=== PATIENT | female | born 1955 | race Caucasian/White ===

== ENCOUNTER 2023-11-24 14:08 | Outpatient (CLI) | payer MEDICARE, SELFPAY ==
--- NOTE | 2023-11-24 14:30 | MR_ITS ---
Patient: KIMBERLY ZHU Facility:?[facility] RIS Patient ID:?[id number] Site Patient ID:?[id number]. Site :?[id number] Study:?MRI-Head W/ and W/O Cont 20 CC DOATERM-11/24/2023 4:38:40 PM Ordering Physician:GOPAL SANTOS Final Report: INDICATION: Headaches. History of breast cancer. COMPARISON: None available. TECHNIQUE: Multiplanar T1, T2, FLAIR and diffusion-weighted imaging.. Post gadolinium T1 weighted sequences. FINDINGS: Mild generalized volume loss. Scattered patchy T2/FLAIR signal hyperintensity within the white matter of both cerebral hemispheres are nonspecific but likely represent chronic deep white matter small vessel ischemic changes. No acute intracranial hemorrhage. No abnormal ventricular dilatation. Intracranial vascular flow voids are preserved. There is a small 3 millimeter ovoid area of low T1 signal intensity within the subcortical white matter of the anterior right temporal lobe with surrounding T2/FLAIR signal hyperintensity but no enhancement (best appreciated on series 6, image 14; series 12, image 81). Finding is indeterminate and may represent a cavernoma with surrounding gliotic change or sequela of old infection or trauma. No mass effect. No midline shift. No restricted diffusion to suggest acute ischemia. No abnormal enhancement or enhancing lesions within the brain parenchyma. Bilateral orbits are unremarkable. Normal appearing sella. Visualized paranasal sinuses mastoid air cells are unremarkable. IMPRESSION: 1. No acute intracranial abnormality 2. No abnormal enhancement or enhancing lesions. No intracranial metastases 3. Mild generalized cerebral volume loss. Scattered patchy T2/FLAIR signal hyperintensity within the white matter of both cerebral hemispheres are nonspecific but likely represent chronic deep white matter small vessel ischemic changes. 4. As described, there is a small 3 millimeter ovoid low T1 signal intensity lesion within the subcortical white matter of the anterior right temporal lobe with surrounding T2/FLAIR signal hyperintensity. No corresponding enhancement. Findings is indeterminate and may represent a cavernoma with surrounding gliosis or sequela of old infection or trauma 5. No mass effect. Dictated by Maurice Charles MD @ 11/26/2023 12:06:59 PM Signed by:?Maurice Charles MD @11/26/2023 12:06:59 PM (Electronic Signature)
== END 2023-11-24 14:09 | disposition home or self-care (01) ==
LOC: MRI 14:12
PROVIDERS: PCP Family Medicine; Visit Provider Internal Medicine Hematology & Oncology
DX: R51.9 Headache, unspecified (principal); I67.82 Cerebral ischemia; Z85.3 Personal history of malignant neoplasm of breast
CPT/HCPCS: 70553; A9575

== ENCOUNTER 2024-07-23 13:41 | Emergency (ER) | payer MEDICARE, SELFPAY ==
[2024-07-23 14:05] VITALS: BP 122/72; PULSE 98; RESP 22; TEMP 37.1; O2SAT 98; BMI 24.0
--- NOTE | 2024-07-23 14:11 | ED_ITS ---
HPI - General Adult General Date Seen: 07/23/24 Chief complaint: Skin/Abscess/Foreign Body Stated complaint: Body rash Time Seen by Provider: 07/23/24 14:11 History of Present Illness HPI narrative: 68-year-old female with a history triple negative breast cancer, treated 5 years ago, with recent recurrence. She is presenting to the ER today with concern for rash. She has a full-body, very pruritic rash that began 2 days ago on Monday. She was seen at the ER in [place] yesterday and was given intramuscular shot of prednisone and Benadryl (they were not able to establish IV). She was sent home on prednisone but did not take her dose this morning. She has been taking Benadryl for the itching. She was on a course of amoxicillin last week for UTI. Per records from the hospital in [place] that she has started a rash on her back on Monday evening which spread to her shoulder, neck, then abdomen. She had labs that showed a white count of 6.4, 79% neutrophils, 9% lymphocytes, 6.7%, monocytes, 4.4% eosinophils Patient reports that she developed an itchy rash on her upper back between her shoulder blades. She is not exactly sure how long it has been on cut she has had some mild itching there for couple of weeks but definitely she has had itc edward and has had a rash since Monday night. She 1st noted the severe itching on Monday night and her daughter looked her back and confirmed that there was a patchy red rash there. Since then the rash is spread to the front of her shoulders, her entire at chest and torso, lesions on the upper part of her upper arms and more sparse lesions on both forearms including the volar and dorsal surfaces and lesions on her hands, including the palms. That she has also spread lesions to both of her lower extremities. She does not have any lesions on her face or scalp. Related Data Allergies Allergy/AdvReac Type Severity Reaction Status Date / Time Sulfa (Sulfonamide Allergy Intermediate Verified 07/23/24 14:04 Antibiotics) [facility] Social History Smoking Status: Never smoker How often do you have a drink containing alcohol: never AUDIT-C Alcohol total score: 0 Non-prescribed substance use: denies use Exam Narrative: Exam Narrative: Constitutional: Appears well-developed and well-nourished. Alert. Conversant. Non toxic. HENT: Head: Atraumatic. Nose: Nose normal. Mouth/Throat: Oral mucosa is clear and moist. no trismus. Pharynx normal. Tonsils symmetric. No tonsillar enlargement, erythema, or exudate. Eyes: Mild irritation of bilateral bulbar conjunctiva. Sclera normal. Small amount of clear drainage from both eyes.. EOM normal. Pupils equal, round, and reactive to light. No scleral icterus. Neck: Normal range of motion. Neck supple. No tracheal deviation present. Cardiovascular: Normal rate, regular rhythm. No gallop. No friction rub. No murmur heard. Symmetric radial artery pulses Pulmonary/Chest: Effort normal. No stridor. No respiratory distress. No wheezes. No rales. No rhonchi . No tenderness. Abdominal: Soft. Bowel sounds normal. No distension. No mass. No tenderness. No rebound. No guarding. Musculoskeletal: RUE: Normal range of motion. No tenderness. No deformity LUE: Normal range of motion. No tenderness. No deformity RLE: Normal range of motion. No edema. No tenderness. No deformity LLE: Normal range of motion. No edema. No tenderness. No deformity Lymph: No cervical adenopathy. Neurological: Alert and oriented to person, place, and time. Normal strength. CN II-VII intact. No sensory deficit. GCS eye subscore is 4. GCS verbal subscore is 5. GCS motor subscore is 6. Normal coordination Skin: There is a widespread erythematous rash affecting the patient's neck, anterior and posterior torso, upper extremities, lower extremities. The rash is primarily round macular non raised lesions. There are innumerable number of lesions on her torso and upper extremities so they become confluent. There is no central vesicles or pustules. No desquamation. Negative Nikolsky sign. The macules are blanchable. They are not really raised urticarial. This there are few macular lesions affecting the skin of her palms. Less lesions on the dorsum of her hands. She oral mucous membranes are normal. On the skin of her leg she has more brown macular lesions especially on her thighs but the macular lesions on her shins to have some tiny erythematous capillary dots in the middle but no purple petechiae or purpura. The rashes are not raised or palpable. Rash not consistent with scarlet fever. No sore throat. No pharyngitis. No pallor. Normal capillary refill. Psychiatric: Normal mood. Pleasant but somewhat anxious. Const: Vital Signs, click to edit/add: Vital Signs - 24 hr 07/23/24 14:05 Temperature 98.7 F Pulse Rate [Pulse Oximeter] 98 Respiratory Rate 22 Blood Pressure [Ri ght Upper Arm] 122/72 Pulse Oximetry 98 Oxygen Delivery Me thod Room Air Course Vital Signs Vital signs: Initial Vital Signs Temperature 98.7 F 07/23/24 14:05 Temperature Source Temporal Artery Scan 07/23/24 14:05 Pulse Rate 98 07/23/24 14:05 Respiratory Rate 22 07/23/24 14:05 Blood Pressure 122/72 07/23/24 14:05 Blood Pressure Mean 88 07/23/24 14:05 Blood Pressure Position Sitting 07/23/24 14:05 Pulse Oximetry 98 07/23/24 14:05 Oxygen Delivery Method Room Air 07/23/24 14:05 Vital Signs Temperature 98.7 F 07/23/24 14:05 Pulse Rate 98 07/23/24 14:05 Respiratory Rate 22 07/23/24 14:05 Blood Pressure 122/72 07/23/24 14:05 Pulse Oximetry 98 07/23/24 14:05 Oxygen Delivery Method Room Air 07/23/24 14:05 Temperature 98.7 F 07/23/24 14:05 Pulse Rate 98 07/23/24 14:05 Respiratory Rate 22 07/23/24 14:05 Blood Pressure 122/72 07/23/24 14:05 Pulse Oximetry 98 07/23/24 14:05 Oxygen Delivery Method Room Air 07/23/24 14:05 Medical Decision Making [facility] Narrative Medical decision making narrative: This patient presents for evaluation of widespread pruritic rash affecting most of her body from the neck down to her lower extremities. Differential includes large reaction but slow spread and presenting symptoms not really fit with that. No evidence for airway involvement, bronchospasm, GI symptoms, hypotension, or other sign of anaphylaxis. Patient is already on prednisone and Benadryl at home. At this point the rash is not consistent with a widespread cellulitis or infection. Not consistent with disseminated zoster, disseminated Lyme. She was recently on a course of amoxicillin for UTI so I wonder if this could be a drug eruption. There is no desquamation or intraoral lesions to suggest CV to Malcolm's or toxic epidermal necrolysis.. CBC shows normal use in a pill count, argue against DRESS. She does have minimally abnormal LFTs. Uncertain significance. She does have new leukocytosis which I suspect is probably a demargination reaction from prednisone which she was given yesterday in the ER. Would continue prednisone for now. Would recommend close outpatient follow-up. Would recommend repeat labs either tomorrow in clinic or by Monday. Return to the ER for worsening rash or other worsening symptoms. Continue on prednisone and Benadryl for now. Lab Data Labs: Lab Results 07/23/24 Range/Units 14:57 WBC 14.81 H (4.50-11.00) K/uL RBC 5.05 (4.00-5.20) m/uL Hgb 14.2 (12.0-16.0) gm/dL Hct 43.0 (33.0-51.0) % MCV 85 (80-100) fL MCH 28 (26-34) pg MCHC 33 (32-36) gm/dL RDW Coeff of Casey 12.2 (11.5-15.5) % Plt Count 228 (140-440) K/uL Neut % (Auto) 85.4 H (42.0-72.0) % Lymph % (Auto) 5.1 L (20-44) % York % (Auto) 6.6 (0.0-11.0) % Eos % (Auto) 1.8 (0.0-7.0) % Baso % (Auto) 0.1 (0.0-3.0) % Neut # (Auto) 12.60 H (1.7-7.0) K/uL Lymph # (Auto) 0.80 L (0.90-2.90) K/uL York # (Auto) 1.00 H (0.00-0.90) K/UL Eos # (Auto) 0.30 (0.00-0.50) K/uL Baso # (Auto) 0.00 (0.00-0.30) K/uL Abs Immat Gran (auto) 0.10 (0.00-0.30) K/uL Imm/Tot Granulo (auto) 1.0 % Sodium 132 L (135-149) mmol/L Potassium 4.5 (3.6-5.1) mmol/L Chloride 96 (96-114) mmol/L Carbon Dioxide 28 (20-32) mmol/L Anion Gap 8 (7-15) mEq/L BUN 16 (7-30) mg/dL Creatinine 0.8 (0.5-1.5) mg/dL Estimated Creat Clear 49.00 Estimated GFR 79 ml/min Glucose 93 (60-115) mg/dL Calcium 9.7 (8.4-10.6) mg/dL Total Bilirubin 0.2 (0.1-1.5) mg/dL AST 52 H (12-35) U/L ALT 43 H (4-35) U/L Alkaline Phosphatase 90 (40-150) U/L Total Protein 7.2 (6.0-8.3) g/dL Albumin 4.4 (3.3-5.0) g/dL Discharge Plan Discharge Clinical Impression: Rash, Drug eruption, Abnormal LFTs Patient Disposition: Home, Self-Care Instructions: Acute Rash (ED) Additional Instructions: As we discussed, please monitor the rash carefully. If you have any concerns especially severe itching, blistering or peeling of your skin, high fever, changing color of your rash, severe pain in your skin, or any problems, please come back to the ER or see your doctor right away. Please recheck with your doctor on Monday to have repeat lab work to make sure white blood cell count comes back to normal. Please call your oncologist to discuss the rash with them. Follow Up/Referrals: Mirta Villegas MD [Primary Care Provider] - Stand Alone Forms: [employer] Info Instructions
--- OUTSIDE RECORDS SUMMARY | 2024-07-23 15:08 | XMS_ITS | Referral Summary ---
Author Organization [facility] Address [address] [place] [address] Care Team Providers Care Auto Top Mechanic Name Role Phone Elsewhere, Pcp Primary Care Provider Unavailabl e Source Comments Patient records contain information from all sites at [facility]. For routine questions regarding patient records, call [phone] during business hours, M-F 8:00 AM - 5:00 PM Central Time. Record requests for emergency care only can be directed to [phone] at any time.[facility] Allergies Active Allergy Reactions Criticality Noted Date Comments House Dust Other (see comments),Cough Medium 8 Sulfa (Sulfonamide Antibiotics) Rash High 01/16/2007 Medications * This document contains information received from the source organization and may not represent a complete record from that organization. acetaminophen (TYLENOL) 325 mg tablet Take 650 mg by mouth. 9 Active azelastine (ASTELIN) 137 mcg/spray (0.1 %) nasal spray Administer 1 spray into affected nostril(s) as needed. 8 Active ibuprofen (ADVIL,MOTRIN) 200 mg tablet Take 400 mg by mouth as needed. 9 Active lidocaine-prilo davian (EMLA) 2.5-2.5 % cream APPLY OVER PORT SITE 30 MINUTES PRIOR TO APPOINTMENT 9 Active omega-3 fatty acids-fish oil 360-1,200 mg capsule Take 1 capsule by mouth. 4 Active vitamins A,C,E-zinc-isiah er (PRESERVISION AREDS) 7,160 Units-113 mg-100 Units per tablet Take 1 tablet by mouth. 9 Active zolpidem (AMBIEN) 5 mg tablet Take 5 mg by mouth as needed. 9 Active multivitamin (multivitamin) tablet Take 1 tablet by mouth daily. Active TURMERIC ORAL 1-2 tablets daily. Active docosahexaenoic acid/epa (DOCOSAHEXANOIC ACID-EPA ORAL) Take 1 capsule by mouth daily. Active melatonin 1 mg tablet,chewable Chew 1 mg as needed (sleep). 3 Active aspirin 325 mg capsule Take 325 mg by mouth daily as needed. Active ascorbic acid, vitamin C, (VITAMIN C) 1,000 mg tablet Take 1,000 mg by mouth daily. Active MAGNESIUM OXIDE ORAL Take 1 tablet by mouth as needed (leg cramps). Active IVERMECTIN ORAL Take 24 mg by mouth daily. Cancer prevention. Active fluticasone propionate (FLONASE) 50 mcg/actuation nasal spray Administer 1 spray into each nostril daily. Active cholecalciferol , vitD3,/vit K2 (vitamin D3-vitamin K2) 125 mcg (5,000 unit)-100 mcg capsule Take 1 capsule by mouth daily. Includes B6, Zinc, Magnesium Active L.acidoph-L.bul g-B.bif-S.therm (BACID) 1 billion cell- 250 mg per tablet Take 1 tablet by mouth at bedtime. Pexis. Active UNABLE TO FIND Apply 1 each topically at bedtime. Med Name: [place] Lotion. 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 on 08/23/2019 Pathologic stage from 08/14/2019:No Stage Recommended(ypT1c, pN0(sn), cM0, G3, ER-, LA-, HER2-) - Signed by Benny Pizarro M.D. on 08/23/2019 Clinical stage from 11/19/2023:Stage IIIC(rcT0, cN3c, cM0, G3, ER-, LA-, HER2-) - Signed by Anant Jones M.D. on 01/18/2024 Benign Neoplasm Colon 09/23/2009 Overview (01/10/2024): Colonoscopy 08/2009 polyp, repeat in 5 years Colonoscopy 11/2018 normal, repeat in 5 years Immunizations Name Administration Dates Next Due HepA Adult 05/27/2014 IPV 05/27/2014 Pneumococcal, Unspecified 01/04/2024(Def erred: Patient Refused - Pt. will receive later locally.) RZV (SHINGRIX) 01/04/2024(Deferred: Patient Refused - Pt. decision.) SARS-COV-2 (COVID-19) - PFIZ ER Fall Seasonal (12 YEARS OR OLDER) 01/04/2024(Deferred: Patient Refused - Pt. refused.) Td (Adult), adsorbed 07/10/1996 Tdap 01/04/2024(Deferred: Patient Refused - Pt. reports up to date.),04/05/2012 TyVi (inj) 05/27/2014 YF 05/27/2014 YF, Unspecified 05/27/2014 influenza trivalent high dos e (HD)(PF) 01/04/2024(Deferred: Patient Refused - Pt. receiving chemo.) Social History Tobacco Use Types Packs/Day Years Used Date Smoking Tobacco: Never Passive Smoke Exposure: Past Smokeless Tobacco: Never Tobacco Cessation:Counseling Given: Not Answered Alcohol Use Standard Drinks/Week Comments Never 0 (1 standard drink = 0.6 oz pur e alcohol) [facility] Utilities Answer Date Recorded In the past 12 months has e [employer] gas, oil, or water [employer] threatened to shut off services in your home? No 01/16/2024 Exercise Vital Sign Answer Date Recorde d On average, how many days pe r week do you engage in moderate to strenuous exercise (like a brisk walk)? 5 days 01/16/2024 On average, how many minutes do you engage in exercise at this level? 30 min 01/16/2024 Hunger Vital Sign Answer Date Recorded Within the past 12 months, y ou worried that your food would run out before you got the money to buy more. Never true 01/16/20 24 Within the past 12 months, t he food you bought just didn't last and you didn't have money to get more. Never true 01/16/2024 PRAPARE - Transportation Answer Date Re corded In the past 12 months, has l ack of transportation kept you from medical appointments or from getting medications? No 12/27 In the past 12 months, has l ack of transportation kept you from meetings, work, or from getting things needed for daily living? No 01/16/2024 Nutrition Answer Date Recorded On average, how many serving s of fruits and vegetables do you eat per day (serving size is equal to 1 cup or approximately the size of a tennis ball)? 3-5 01/16/2024 Dental Answer Date Recorded Dental: Regular Dentist No 01/16/20 Employment Answer Date Recorded Employment status Employed and actively working without restrictions 01/16/2024 Housing Stability Answer Date Recorded What is your living situation today? 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 Gender Identity Female 01/16/2024 10:31 PM CDT Sexual Orientation Straight 01/16/2024 10 :31 PM CDT Last Filed Vital Signs Vital Sign Reading Time Taken Comments Blood Pressure 124/76 01/10/2024 9:05 AM CDT Pulse 75 01/10/2024 9:05 AM CDT Temperature 36.2 C (97.2 F) 10/14/2019 10:04 AM RAPID TRANSIT OPERATOR Respiratory Rate - - Oxygen Saturation - - Inhaled Oxygen Concentration - - Weight 72.7 kg (160 lb 4.4 oz) 01/18/2024 2:54 P M CDT Height 168.5 cm (5' 6.34) 01/10/2024 9:05 AM CD T Body Mass Index 25.61 01/10/2024 9:05 AM CDT Plan of Treatment Not on file Medical Devices Implanted Type Area Order Takers Supervisor Device Identifier Shelf Expiration Date Model / Serial / Lot Hardware E.G. Pins/Screws/R ods Hardware e.g. pins/screws/ rods Left: Wrist Procedures Procedure Name Priority Date/Time Associated Diagnosis Comments MR BREAST BILATERAL WITHOUT AND WITH IV CONTRAST RAD - Routine (most inpatients and all outpatients) 01/23/2024 10:07 AM CDT Malignant Neoplasm Of Breast Female Left (HCC) from Last 3 Months or Most Recently Relevant to Health Maintenance Results * (ABNORMAL) MR Breast Bilateral without and with IV Contrast (01/23/2024 10:07 AM CDT) Anatomical Region Laterality Modality Breast, Breast Imaging RST L OS, Breast Imaging ARZ LOS, Breast Imaging FLA LOS Bilateral Magnetic Resonance Impressions 01/23/2024 10:28 AM CDT 1. No MRI findings of malignancy in the breasts or axillae. Post-treatment changes in the left breast and axilla. 2. Partially visualized left supraclavicular carmelo recurrence. RECOMMENDATION: Clinical Management Continue multidisciplinary management of the known left supraclavicular carmelo recurrence. ASSESSMENT: BI-RADS: 6: Known Biopsy-Proven Malignancy. Narrative 01/23/2024 10:28 AM CDT EXAM: MR BREAST BILATERAL WITHOUT AND WITH IV CONTRAST INDICATION: Cancer staging HISTORY: History of left breast invasive ductal carcinoma status post adjuvant chemotherapy and breast conservation completed 2019. Recent left supraclavicular carmelo recurrence. HORMONAL STATUS: Postmenopausal. No hormone replacement therapy. COMPARISON: Prior exam(s) were available and reviewed for comparison. TECHNIQUE: Dynamic enhanced protocol using IV contrast administration with T1 and T2- weighted images and CAD image analysis. FIBROGLANDULAR TISSUE: b. Scattered fibroglandular tissue. BACKGROUND PARENCHYMAL ENHANCEMENT: a. Minimal FINDINGS: RIGHT BREAST: No MRI findings of malignancy in the right breast. RIGHT AXILLA: No right axillary lymphadenopathy. LEFT BREAST: Posttreatment changes in the central breast at posterior depth. No suspicious enhancement. LEFT AXILLA: No left axillary lymphadenopathy. Postsurgical changes. CHEST WALL: No internal mammary lymphadenopathy. Other: Partially visualized known left supraclavicular carmelo recurrence measuring (for example, axial postcontrast images 5-9). This was better characterized on the outside neck CT. Scarring or subsegmental atelectasis anterior lungs, as seen on the recent chest CT. Procedure Note Sukhjinder Gonsalez M.D. - 01/23/2024 EXAM: MR BREAST BILATERAL WITHOUT AND WITH IV CONTRAST INDICATION: Cancer staging HISTORY: History of left breast invasive ductal carcinoma status postadjuvant chemotherapy and breast conservation completed 2019. Recent leftsupraclavicular carmelo recurrence. HORMONAL STATUS: Postmenopausal. No hormone replacement therapy. COMPARISON: Prior exam(s) were available and reviewed for comparison. TECHNIQUE: Dynamic enhanced protocol using IV contrast administrationwith T1 and T2-weighted images and CAD image analysis. FIBROGLANDULAR TISSUE: b. Scattered fibroglandular tissue. BACKGROUND PARENCHYMAL ENHANCEMENT: a. Minimal FINDINGS: RIGHT BREAST: No MRI findings of malignancy in the right breast. RIGHT AXILLA: No right axillary lymphadenopathy. LEFT BREAST: Posttreatment changes in the central breast at posteriordepth. No suspicious enhancement. LEFT AXILLA: No left axillary lymphadenopathy. Postsurgical changes. CHEST WALL: No internal mammary lymphadenopathy. Other: Partially visualized known left supraclavicular carmelo recurrencemeasuring (for example, axial postcontrast images 5-9). This was bettercharacterized on the outside neck CT. Scarring or subsegmental atelectasis anterior lungs, as seen on the recentchest CT. IMPRESSION: 1. No MRI findings of malignancy in the breasts or axillae. Post- treatmentchanges in the left breast and axilla. 2. Partially visualized left supraclavicular carmelo recurrence. RECOMMENDATION: Clinical Management Continue multidisciplinary management of the known left supraclavicularnodal recurrence. ASSESSMENT: BI-RADS: 6: Known Biopsy-Proven Malignancy. Misty Prater M.D. [facility] [place] PROCEDURES Final Result from Last 3 Months or Most Recently Relevant to Health Maintenance Insurance [employer] Care Teams Auto Top Mechanic Relationship Specialty Start Date End Date Elsewhere, Pcp PCP - General Rail Equipment Operator 08/23/19
--- OUTSIDE RECORDS SUMMARY | 2024-07-23 15:08 | XMS_ITS ---
Author Organization [facility] Address [address] [place] [address] Care Team Providers Care Retail Center Receptionist Name Role Phone Unavailable Unavailable Unavailable Surgery Details Not on file Complications Check Surgery Details section. Procedure Estimated Blood Loss Check Surgery Details section. Procedure Findings Check Surgery Details section. Procedure Specimens Taken Check Surgery Details section.
--- OUTSIDE RECORDS SUMMARY | 2024-07-23 15:08 | XMS_ITS | Clinical Summary ---
Author Organization [facility] Address [address] [place] [address] Care Team Providers Care Chief Technician X Ray Name Role Phone Elsewhere, Pcp Primary Care Provider Unavailabl e Source Comments Patient records contain information from all sites at [facility]. For routine questions regarding patient records, call [phone] during business hours, M-F 8:00 AM - 5:00 PM Central Time. Record requests for emergency care only can be directed to [phone] at any time.[facility] Allergies Active Allergy Reactions Criticality Noted [...] from 02/01/2019:Stage IIB(cT2(2), cN0, cM0, G3, ER-, HI-, HER2-) - Signed by Benny Pizarro M.D. on 08/23/2019 Pathologic stage from 08/14/2019:No Stage Recommended(ypT1c, pN0(sn), cM0, G3, ER-, HI-, HER2-) - Signed by Benny Pizarro M.D. on 08/23/2019 Clinical stage from 11/19/2023:Stage IIIC(rcT0, cN3c, cM0, G3, ER-, HI-, HER2-) - Signed by Anant Jones M.D. [...] 01/04/2024(Deferred: Patient Refused - Pt. receiving chemo.) Family History Medical History Relation Name Comments Colon cancer Mother Cancer Mother's Brother 1 Cancer Mother's Brother 2 Leukemia Paternal Grandfather Polycythemia Son Relation Name Status Comments Mother Mother's Brother 1 Mother's Brother 2 Paternal Grandfather Son Alive Social History Tobacco Use Types Packs/Day Years Used Date Smoking Tobacco: Never Passive Smoke Exposure: Past Smokeless Tobacco: Never Tobacco Cessation:Counseling Given: Not Answered Alcohol Use Standard Drinks/Week Comments Never 0 (1 standard drink = 0.6 oz pur e alcohol) [facility] Utilities Answer Date Recorded In the past 12 months has th e electric, gas, oil, or water company threatened to shut off services in your [...] money to buy more. Never true 01/16/20 Within the past 12 months, t he [...] your living situation today? I have a [facility] place to live 01/16/2024 Comments No Sex and Gender Information Value Date Recorded Sex Assigned at Choose not to disclose 10:31 PM CDT Legal Sex Female 8:17 PM [employer] Gender Identity Female 01/16/2024 10:31 PM CDT Sexual Orientation Straight 01/16/2024 10 :31 PM CDT Last Filed Vital Signs Vital Sign Reading Time Taken Comments Blood Pressure 124/76 01/10/2024 9:05 AM CDT Pulse 75 01/10/2024 9:05 AM CDT Temperature 36.2 C (97.2 F) 10/14/2019 10:04 AM [employer] Respiratory Rate - - Oxygen Saturation - - Inhaled Oxygen Concentration - - Weight 72.7 kg (160 lb 4.4 oz) 01/18/2024 2:54 P M CDT Height 168.5 cm (5' 6.34) 01/10/2024 9:05 AM CD T Body Mass Index 25.61 01/10/2024 9:05 AM CDT Plan of Treatment Health Maintenance Due Date Last Done Comments Bone Density Scan (Osteoporosis Screen) 1953 CT Colonography 1955 Cologuard 1955 Hepatitis C Screening 1955 COVID-19 Vaccine (#1) 1958 Pneumococcal vaccine (65+ years) (1 of 2 - PCV) 1959 Zoster Vaccines (1 of 2) 1972 IPV Vaccines (2 of 3 - Adult catch-up series) 06/24/2014 05/27/2014 Hepatitis A Vaccines (2 of 2 - Risk 2-dose series) 11/24/2014 05/27/2014 DTaP,Tdap,and Td Vaccines (2 - Td or Tdap) 04/05/2022 04/05/2012, 07/10/1996 Depression Screening (Annual PHQ-2) 08/28/2023 Fall Risk Screen (Annual) 08/28/2023 Colonoscopy 12/12/2023 12/11/2018 Colorectal Cancer Surveillance 12/12/2023 Influenza Vaccine (#1) 2024 Mammogram 01/22/2025 01/23/2024, 12/26, 02/24/2023 (Performed elsewhere), Additional history exists Fasting Glucose for Diabetes Screening 10/30/2026 10/31/2023, 10/29/2019, 07/30/2019, Additional history exists HPV Vaccines Aged Out No longer eligi ble based on patient's age to complete this topic Medical Devices Implanted Type Area Disk Operator Device Identifier Shelf Expiration Date Model / [...] 6: Known Biopsy-Proven Malignancy. Misty Prater M.D. IM MRI PROCEDURES Final Result from Last 3 Months or Most Recently Relevant to Health Maintenance Insurance [facility] Care Teams Chief Technician X Ray Relationship Specialty Start Date End Date Elsewhere, Pcp PCP - General Dog Food Dough Mixer 08/23/19
--- OUTSIDE RECORDS SUMMARY | 2024-07-23 15:08 | XMS_ITS | Patient Health Record ---
Author Organization [facility] Address [address] [place] [address] Care Team Providers Care Seismic Interpreter Name Role Phone Dedra Timmons Primary Care Provider Charles Bell Unavailable [phone] Allergies Allergen (clinical drug ingredient) Drug/Non Drug Allergy documented on EMR Reaction Allergy Type Onset Date Status Substance with sulfonamide structure and antibacterial mechanism of action (substance) sulfa (uncoded) Unknown Allergy Active Reason For Referral No Information Medications Medication SIG (Take, Route, Frequency, Duration) Notes Start Date End Date Status Azelastine HCl 137 MCG/SPRAY 1 puff in each nostril Nasally Twice a day for 30 day(s) PRN-occasionally for allergies Active Fish Oil 1200 MG 1 capsule Orally Once a day for 30 day(s) Active Multivitamin daily Active Aspir-Low 81 MG 1 tablet Orally Once a day for 30 day(s) prn Active Zinc Active Ambien 5 MG 1 tablet at bedtime Orally Once a day prn Active HERBAL SUPPLEMENT Eye supplement Active TUMERIC Not-Taking Magnesium powder as needed for leg cramps Not-Taking Melatonin prn for sleep Active Calcium Active Social History Tobacco Use: Social History Observation Description Date Details (start date - stop date) Never Smoker NA - NA Sex Assigned At : Social History Observation Description Sex Assigned At Unknown Tobacco Use/Smoking Question Answer Notes Are you a nonsmoker Alcohol Screen (Audit-C) Question Answer Notes Did you have a drink containing alcohol in the p ast year? No Points 0 Interpretation Negative Sexual History Question Answer Notes Had sex in the past 12 months (vaginal, oral, or anal)? Yes with Men only Have you ever had a Sexually transmitted disease ? 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 now youngest child is 23 homeschooled all her kids lives in [place] primary doctor: Mirta Villegas MD, [employer] Allina works as an plastics fabricator or welder now youngest child is 23 homeschooled all her kids lives in [facility] doctor: Mitra Villegas MD, [employer] works as an plastics fabricator or welder now youngest child is 23 homeschooled all her kids lives in [facility] doctor: Mirta Villegas MD, [employer]ina works as an plastics fabricator or welder now youngest child is 23 homeschooled all her kids lives in [facility] doctor: Mirta Villegas MD, [employer] Allabram works as an plastics fabricator or welder now youngest child is 23 homeschooled all her kids lives in [facility] doctor: Mirta Villegas MD, [employer] Allina works as an plastics fabricator or welder now youngest child is 23 homeschooled all her kids lives in [facility] doctor: Mirta Villegas MD, [employer]ina works as an plastics fabricator or welder now youngest child is 23 homeschooled all her kids lives in [facility] doctor: Mirta Villegas MD, [employer] Allina works as an plastics fabricator or welder now youngest child is 23 homeschooled all her kids lives in [facility] doctor: Mirta Villegas MD, Dur[employer] Allabram works as an plastics fabricator or welder now youngest child is 23 homeschooled all her kids lives in [place] primary doctor: Mirta Villegas MD, Dur[employer] Allina works as an plastics fabricator or welder now youngest child is 23 homeschooled all her kids lives in [place] primary doctor: Mirta Villegas MD, Dur[employer] Allina works as an plastics fabricator or welder now youngest child is 23 homeschooled all her kids lives in [place] primary doctor: Mirta Villegas MD, Dur[employer] Allabram works as an plastics fabricator or welder now youngest child is 23 homeschooled all her kids lives in [place] primary doctor: Mirta Villegas MD, [employer] Allina works as an plastics fabricator or welder now youngest child is 23 homeschooled all her kids lives in [place] primary doctor: Mirta Villegas MD, [employer] Allina works as an plastics fabricator or welder now youngest child is 23 homeschooled all her kids lives in [place] primary doctor: Mirta Villegas MD, Dur[employer] Allabram works as an plastics fabricator or welder now youngest child is 23 homeschooled all her kids lives in [place] primary doctor: Mirta Villegas MD, [employer] Allina works as an plastics fabricator or welder now youngest child is 23 homeschooled all her kids lives in [place] primary doctor: Mirta Villegas MD, Dur[employer] Allabram works as an plastics fabricator or welder now youngest child is 23 homeschooled all her kids lives in [place] primary doctor: Mirta Villegas MD, Dur[employer]abram works as an plastics fabricator or welder now youngest child is 23 homeschooled all her kids lives in [place] primary doctor: Mirta Villegas MD, Dur[employer] Allina works as an plastics fabricator or welder now youngest child is 23 homeschooled all her kids lives in [place] primary doctor: Mirta Villegas MD, Durant Allabram works as an plastics fabricator or welder now youngest child is 23 homeschooled all her kids lives in [place] primary doctor: Mirta Villegas MD, [employer]abram works as an plastics fabricator or welder now youngest child is 23 homeschooled all her kids lives in [place] primary doctor: Mirta Villegas MD, Dur[employer]abram works as an plastics fabricator or welder now youngest child is 23 homeschooled all her kids lives in [place] primary doctor: Mirta Villegas MD, [employer]ina works as an plastics fabricator or welder now youngest child is 23 homeschooled all her kids lives in [place] primary doctor: Mirta Villegas MD, Dur[employer] Allina works as an plastics fabricator or welder now youngest child is 23 homeschooled all her kids lives in [place] primary doctor: Mirta Villegas MD, Dur[employer] Allabram works as an plastics fabricator or welder now youngest child is 23 homeschooled all her kids lives in [place] primary doctor: Mirta Villegas MD, [employer]abram works as an plastics fabricator or welder now youngest child is 23 homeschooled all her kids lives in [place] primary doctor: Mirta Villegas MD, Durant Ray works as an plastics fabricator or welder now youngest child is 23 homeschooled all her kids lives in [place] primary doctor: Mirta Villegas MD, Durant Ray works as an plastics fabricator or welder now youngest child is 23 homeschooled all her kids lives in [place] primary doctor: Mirta Villegas MD, Durant Ray works as an plastics fabricator or welder now youngest child is 23 homeschooled all her kids lives in [place] primary doctor: Mirta Villegas MD, Durant Ray works as an plastics fabricator or welder now youngest child is 23 homeschooled all her kids Problems Problem Type SNOMED Code ICD Code Onset Dates Problem Status W/U Status Risk Notes Problem SI - Stress incontinence (05231933) Stress incontinence (female) (male) (N39.3) Active confirmed Problem Urge incontinence of urine (46872255) Urge incontinence (N39.41) Active confirmed Problem 935504879 Cystocele, midline (N81.11) Active confirmed Problem 1367134 Rectocele (N81.6) Active confirmed Problem Incomplete passage of stool (132838651) Incomplete defecation (R15.0) Active confirmed Problem 881828165 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
--- OUTSIDE RECORDS SUMMARY | 2024-07-23 15:08 | XMS_ITS | Clinical Summary ---
Author Organization [employer] [facility] Address [place], [place] [address] Care Team Providers Care Aquaculture Farmer Name Role Phone Mirta Villegas MD Primary Care Provide r Susie Diaz MD Unavailable Unavai Paulo James MD Unavailable [phone] Shari Fowler MD Unavailable Unavailable Allergies Active Allergy Reactions Criticality Noted Date Comments House Dust Runny Nose,Headache 08/15/2008 Sulfa (Sulfonamide Antibiotics) Hives 12/27 fever Medications Medication Sig Dispensed Refills Start Date End Date Status fish oil-omega-3 fatty acids (FISH OIL) 1,200-360 mg cap Take 1 capsule by mouth once daily. 2 capsule 0 05/21/2014 Active azelastine 137 mcg/actuation (ASTELIN) nasal sprayIndications:Chr onic allergic rhinitis, unspecified seasonality, unspecified trigger Inhale 1 [place]adilla in the nostril(s) 2 times daily. 1 Bottle 3 10/02/2017 Active ibuprofen (ADVIL; MOTRIN) 200 mg tablet Take 2 tablets by mouth every 6 hours if needed for Pain. Maximum of 3200 mg in 24 hours. 08/14/2019 Active medication order composer Vitamin D3 0 01/23/2020 Active medication order composerIndications: History of breast cancer Take 1 Tablet by mouth once daily. Calcium with vitamin D 0 12/17/2020 Active nk-wsg-QF-vit G-qfowfz-mbqlyyt (PreserVision AREDS 2 Plus MV) 200 mcg-15 mcg- 5 mg-1 mg capIndications:Histo ry of breast cancer Take by mouth. 0 01/09/2023 Active melatonin 1 mg chew Chew by mouth. 0 01/09/2023 Active zolpidem (AMBIEN) 5 mg tabletIndications:In somnia, idiopathic Take 1 Tablet (5 mg) by mouth at bedtime if needed for Sleep. 30 Tablet 3 10/31/2023 Active IVERMECTIN ORAL Take 24 mg by mouth. Active metFORMIN (GLUCOPHAGE XR) 500 mg Extended-Release tablet 02/22/2024 Active pwsny-3-YKH-EPA-fish oil 300-1,000 mg capsule Take 1 g by mouth. Active ondansetron (ZOFRAN ODT) 4 mg disintegrating tablet DISSOLVE 1 TABLET IN MOUTH EVERY 6 HOURS NEEDED FOR NAUSEA 02/28/2024 Active predniSONE (DELTASONE) 20 mg tabletIndications:Ra sh Take 2 Tablets (40 mg) by mouth once daily with a meal for 4 days. 8 Tablet 07/23/2024 4 Active cephalexin 500 mg capsuleIndications:U TI (urinary tract infection), uncomplicated Take 1 Capsule (500 mg) by mouth two times daily for 7 days. 14 Capsule 07/10/2024 4 Discontinued (*Med complete/Reg imen complete/Lev el of care change) amoxicillin 500 mg tabletIndications:UT I (urinary tract infection), uncomplicated Take 1 Tablet (500 mg) by mouth three times daily for 7 days. 21 Tablet 07/12/2024 4 diphenhydrAMINE (BenadryL) 25 mg capsuleIndications:H bridgett Take 2 Capsules (50 mg) by mouth one time for 1 dose. 2 Capsule 07/22/2024 4 Discontinued (*Error/Orde r entry error) predniSONE (DELTASONE) 20 mg tabletIndications:Hi ves Take 1 Tablet (20 mg) by mouth once daily with a meal for 5 days. 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 10/31/2023 Malignant neoplasm of overla pping sites of left breast in female, estrogen receptor negative 06/17/2019 Cancer Staging:Clinical:Stage IIB(cT2, cN0, cM0, G3, ER-, AK-, HER2-) - Signed by Shari Fowler MD on 06/17/2019 Pathologic stage from 08/14/2019:No Stage Recommended(ypT1c, pN0, cM0, G3, ER-, AK-, HER2-) - Signed by Gabbi Gates PA on 09/02/2019 Benign neoplasm of colon 09/23/2009 Overview (12/11/2018): Colonoscopy 08/2009 polyp, repeat in 5 years Colonoscopy 11/2018 normal, repeat in 5 years Unspecified prolapse of vaginal barragan 04/10/2007 Resolved Problems Problem Noted Date Diagnosed Date Resolved Date Heart failure 07/31/2020 10/31/2023 Overview (07/31/2020): Per chart review: 07/12/2019 Associated Dx: Congestive heart failure, unspecified HF chronicity, unspecified heart failure type (HC) Authorizing provider: Pepito Brothers MD Encounters Date Type Department Care Team Description 07/22/2024 1:41 PM FLATTENING MACHINE OPERATOR - 07/22/2024 4:43 PM FLATTENING MACHINE OPERATOR Emergency [facility] [address] [place] [address] Deb Driver MD Rash (Primary Dx) Discharge Disposition: Home Self Care 07/22/2024 12:40 PM FLATTENING MACHINE OPERATOR Office Visit [facility] [address] [place] [address] Ophelia Taylor, PARVIZ Derm Problem (itchy raised rash all over , since last night took Benadryl @4am, eyes red and itchy) 07/22/2024 Travel 07/22/2024 Nurse Triage [facility] [address] [place] [address] Mirta Villegas MD Rash 07/12/2024 Orders Only [facility] [address] [place] [address] Jennifer Richardson PA <No scans attached> 07/10/2024 Telephone [facility] [address] [facility] [place] [address] Mirta Villegas MD UTI 07/09/2024 4:00 PM FLATTENING MACHINE OPERATOR Phone Office Visit [facility] [address] [place] [address] Mirta Villegas MD Telehealth ([phone]); UTI (Frequency and burning. Comes and goes from day to day./Using cranberry capsules./Waiting on PET scan results from yesterday) 07/09/2024 Travel 07/09/2024 Telephone [facility] [address] [place] [address] Mirta Villegas MD Appointment Request (URINARY ISSUES) 05/28/2024 8:45 AM CDT Office Visit [facility] [address] [place] [address] Saskia Jamison, Dysuria (Burning with urination, 4 days) 05/28/2024 Travel from Last 3 Months Immunizations Name Administration Dates Next Due Hepatitis A (Adult) 05/27/2014 Inactivated Polio Vaccine 05/27/2014 Td (Age >=7 Years) 07/10/1996 Tdap 04/05/2012 Typhoid (injectable) 05/27/2014 Typhoid Parenteral,Killed 05/27/2014 Yellow Fever 05/27/2014 Yellow Fever, Unspecified Formulation 05/27/2014 Family History Medical History Relation Name Comments Cancer-colon Mother Diabetes Mother Cancer-breast Other 1 neice Cancer-colon Other 2 paternal cousin Leukemia Paternal Grandfather Anesthesia Problem No Family History Blood Disease No Family History Cancer-ovarian No Family History Cancer-pancreatic No Family History Cancer-prostate No Family History Melanoma No Family History Relation Name Status Comments Mother Other 1 neice Alive Other 2 paternal cousin Alive Paternal Grandfather Social History Tobacco Use Types Packs/Day Years Used Date Smoking Tobacco: Never Smokeless Tobacco: Never Tobacco Cessation:Counseling Given: Yes Alcohol Use Standard Drinks/Week Comments No 0 (1 standard drink = 0.6 oz pur e alcohol) PHQ-2 Answer Date Recorded PHQ-2 TOTAL SCORE 0 10/31/2023 Social Connections Answer Date Recorded Do you often feel lonely or isolated from those around you? 0 10/31/2023 Financial Resource Strain Answer Date R ecorded Difficulty of Paying Living Expenses 3 10/31/2023 Difficulty of Paying Living Expenses Not on file 10/31/2023 Food Insecurity Answer Date Recorded Do you worry your food will run out before you are able to buy more? 1 10/31/2023 Transportation Needs Answer Date Record ed Does lack of transportation keep you from medica l appointments? 1 10/31/2023 Does lack of transportation keep you from work, meetings or getting things that you need? 1 10/31/2023 Housing Stability Answer Date Recorded What is your housing situation today? 1 10/31/2023 Sex and Gender Information Value Date Recorded Sex Assigned at Not on file Gender Identity Not on file Sexual Orientation Not on file Obstetrics History Last Filed Vital Signs Vital Sign Reading Time Taken Comments Blood Pressure 133/89 07/22/2024 4:41 PM FLATTENING MACHINE OPERATOR Pulse 83 07/22/2024 4:41 PM FLATTENING MACHINE OPERATOR Temperature 37.3 C (99.1 F) 07/22/2024 1:50 PM FLATTENING MACHINE OPERATOR Respiratory Rate 16 07/22/2024 1:50 PM FLATTENING MACHINE OPERATOR Oxygen Saturation 96% 07/22/2024 4:41 PM FLATTENING MACHINE OPERATOR Inhaled Oxygen Concentration - - Weight 67.7 kg (149 lb 4 oz) 07/22/2024 1:50 PM FLATTENING MACHINE OPERATOR Height 167.6 cm (5' 6) 07/22/2024 1:50 PM FLATTENING MACHINE OPERATOR Body Mass Index 24.09 07/22/2024 1:50 PM FLATTENING MACHINE OPERATOR Plan of Treatment Health Maintenance Due Date Last Done Comments COVID-19 vaccine series (#1) 1958 Pneumococcal series for age 65+ (1 of 2 - PCV) 1959 Hepatitis C screening for ag e 18-79 1971 Zoster (shingles) series for age 50+ (1 of 2) 1972 Tetanus booster 04/05/2022 04/05/2012, 07/10/1996 Colonoscopy through age 75 12/12/202312/11, 12/11/2018, 12/11/2018, Additional history exists Mammogram for age 45-75 01/10/2024 01/10/20 23, 12/22/2021, 12/17/2020, Additional history exists Influenza for age 65+ 04/28/2024 BMI (ht and wt on same day) for age 18+ 10/30/2024 10/31/2023, 01/09/2023, 12/22/2021, Additional history exists Medicare Wellness for age 65+ 10/31/2024 10/31/2023 Depression screening for age 12+ 11/01/2024 11/02/2023, 10/31/2023, 10/31/2023, Additional history exists Lipids for age 45-75 10/30/2028 10/31/2023 Tdap Completed 04/05/2012 DEXA/DXA scan for age 65+ Completed 04/14/2020 Medical Devices Implanted Type Area Teacher Visually Impaired Device Identifier Shelf Expiration Date Model / Serial / Lot Port Low Profile Slim W/6fr 1 Lmn [employer] - [id number] Implanted:Qty: 1 on 02/18/2019 by Susie Diaz MD at [facility] Right: Jugular Vein [employer] 05/27/2020 [id number] / / [id number] Procedures Procedure Name Priority Date/Time Associated Diagnosis Comments CBC WITH AUTO DIFFERENTIAL STAT 07/22/2024 2:30 PM FLATTENING MACHINE OPERATOR BASIC METABOLIC PANEL STAT 07/22/2024 2:30 PM FLATTENING MACHINE OPERATOR CBC WITH AUTO DIFFERENTIAL STAT 07/22/2024 2:30 PM FLATTENING MACHINE OPERATOR URINALYSIS MICROSCOPIC Routine 07/09/2024 4:33 PM FLATTENING MACHINE OPERATOR Dysuria URINE CULTURE Routine 07/09/2024 4:33 PM FLATTENING MACHINE OPERATOR Dysuria URINE CULTURE Routine 05/28/2024 11:52 AM CDT Dysuria URINALYSIS MICROSCOPIC Routine 05/28/2024 10:10 AM CDT Dysuria URINALYSIS MACROSCOPIC - [facility] ONLY POC DIP ([facility]) Routine 05/28/2024 10:09 AM CDT Dysuria LIPID PANEL W REFLEX MEASURED LDL Routine 10/31/2023 10:58 AM FLATTENING MACHINE OPERATOR Screening for cardiovascular condition XR MAMMO MATHEUS BILAT SCREEN Routine 01/09/2023 9:16 AM CDT Visit for screening mammogram XR DXA BONE DENSITY 2 SITES AXIAL Routine 04/14/2020 11:01 AM CDT Screening for osteoporosis Menopausal syndrome (hot flashes) Vitamin D deficiency Disorder of bone and cartilage alf (current) use of systemic steroids alf (current) use of inhaled steroids Postmenopausal COLONOSCOPY 12/11/2018 2:10 PM CDT from Last 3 Months or Most Recently Relevant to Health Maintenance Results * (ABNORMAL) CBC WITH AUTO DIFFERENTIAL (07/22/2024 2:30 PM FLATTENING MACHINE OPERATOR) Pathologist [facility] WHITE BLOOD COUNT 6.4 4.5 - 11.0 thou/cu mm 07/22/2024 2:52 PM [facility] RED BLOOD COUNT 4.75 4.00 - 5.20 mil/cu mm 07/22/2024 2:52 PM [facility] HEMOGLOBIN 13.6 12.0 - 16.0 g/dL 07/22/2024 2:52 PM [facility] HEMATOCRIT 40.9 33.0 - 51.0 % 07/22/2024 2:52 PM [facility] MCV 86 80 - 100 fL 07/22/2024 2:52 PM [facility] MCH 28.6 26.0 - 34.0 pg 07/22/2024 2:52 PM [facility] MCHC 33.3 32.0 - 36.0 g/dL 07/22/2024 2:52 PM [facility] RDW 12.9 11.5 - 15.5 % 07/22/2024 2:52 PM [facility] PLATELET COUNT 214 140 - 440 thou/cu mm 07/22/2024 2:52 PM [facility] MPV 9.4 6.5 - 11.0 fL 07/22/2024 2:52 PM [facility] % NEUT 79.9 % 07/22/2024 2:52 PM [facility] % LYMPH 9.0 % 07/22/2024 2:52 PM [facility] % MONO 6.7 % 07/22/2024 2:52 PM [facility] % EOS 4.4 % 07/22/2024 2:52 PM [facility] % BASO 0.0 % 07/22/2024 2:52 PM [facility] ABSOLUTE NEUTROPHILS 5.1 1.7 - 7.0 thou/cu mm 07/22/2024 2:52 PM [facility] ABSOLUTE LYMPHOCYTES 0.6(L) 0.9 - 2.9 thou/cu mm 07/22/2024 2:52 PM [facility] ABSOLUTE MONOCYTES 0.4 <0.9 thou/cu mm 07/22/2024 2:52 PM [facility] ABSOLUTE EOSINOPHILS 0.3 <0.5 thou/cu mm 07/22/2024 2:52 PM [facility] ABSOLUTE BASOPHILS 0.0 <0.3 thou/cu mm 07/22/2024 2:52 PM [facility] Blood BLOOD SPECIMEN / Unknown Venipuncture / Unknown 07/22/2024 2:30 PM FLATTENING MACHINE OPERATOR 07/22/2024 2:38 PM FLATTENING MACHINE OPERATOR Deb Driver MD HEMATOLOGY [facility] [address] [place] [id number] * (ABNORMAL) BASIC METABOLIC PANEL (07/22/2024 2:30 PM FLATTENING MACHINE OPERATOR) SODIUM 135(L) 136 - 145 mmol/L 07/22/2024 3:03 PM [facility] POTASSIUM 3.9 3.5 - 5.1 mmol/L 07/22/2024 3:03 PM [facility] CHLORIDE 99 98 - 107 mmol/L 07/22/2024 3:03 PM [facility] CO2,TOTAL 25 22 - 29 mmol/L 07/22/2024 3:03 PM [facility] ANION GAP 11 5 - 18 07/22/2024 3:03 PM [facility] GLUCOSE 92 70 - 99 mg/dL 07/22/2024 3:03 PM [facility] CALCIUM 9.4 8.8 - 10.4 mg/dL 07/22/2024 3:03 PM [facility] Comment: Reference ranges for this test were updated on 07/02/2024 to reflect our healthy population more accurately. Reference range changes are not retroactively applied to results, but previous results using the same methodology can be interpreted in the context of the new reference range. BUN 11 8 - 23 mg/dL 07/22/2024 3:03 PM [facility] CREATININE 0.70 0.50 - 0.90 mg/dL 07/22/2024 3:03 PM [facility] BUN/CREAT RATIO 16 10 - 20 3:03 PM [facility] eGFR >90 >90 mL/min/1. 73m2 07/22/2024 3:03 PM [facility] Comment:As of 2021, eG FR is calculated by the CKD-EPI creatinine equation without race adjustment. eGFR can be influenced by muscle mass, exercise, and diet. The reported eGFR is an estimation only and is only applicable if the renal function is stable. Blood BLOOD SPECIMEN / Unknown Venipuncture / Unknown 07/22/2024 2:30 PM FLATTENING MACHINE OPERATOR 07/22/2024 2:38 PM FLATTENING MACHINE OPERATOR Deb Driver MD CHEMISTRY [facility] [address] [place] [address] * (ABNORMAL) URINALYSIS MICROSCOPIC (07/09/2024 4:33 PM FLATTENING MACHINE OPERATOR) Only the most recent of2 resultswithin the time period is included. WBC UA > OR = 60(A) < OR = 5 /HPF [facility] RBC UA NONE SEEN < OR = 2 /HPF [facility] SQUAMOUS EPITHELIAL CELLS UA NONE SEEN < OR = 5 /HPF [facility] BACTERIA UA NONE SEEN NONE SEEN /HPF [facility] HYALINE CAST 0-5(A) NONE SEEN /LPF [facility] NOTE UA [facility] Comment: This urine was analyzed for the presence of WBC, RBC, bacteria, casts, and other formed elements. Only those elements seen were reported. Urine URINE SPECIMEN / Unknown 07/09/2024 4:33 PM FLATTENING MACHINE OPERATOR 07/09/2024 4:33 PM FLATTENING MACHINE OPERATOR Narrative [facility] - 07/10/2024 3:46 AM FLATTENING MACHINE OPERATOR FASTING:NO FASTING: NO Mirta Villegas MD URINE [facility] [address] [place] [address], [facility] [address] [place] [address] * (ABNORMAL) URINE CULTURE (07/09/2024 4:33 PM FLATTENING MACHINE OPERATOR) Only the most recent of2 resultswithin the time period is included. CULTURE, URINE, ROUTINE SEE NOTE(A) [facility] Comment: CULTURE, URINE, ROUTINE Micro Number: [id number] Test Status: Final Specimen Source: Urine, clean catch Specimen Quality: Adequate Result: 10,000-49,000 CFU/mL of Enterococcus faecalis E.faecalis INT MADELEINE AMPICILLIN S <=2 NITROFURANTOIN S <=16 VANCOMYCIN S 1 S = Susceptible I = Intermediate R = Resistant NS = Not susceptible SDD = Susceptible Dose Dependent * = Not Tested NR = Not Reported NN = See Therapy Comments Urine URINE SPECIMEN / Unknown 07/09/2024 4:33 PM FLATTENING MACHINE OPERATOR 07/09/2024 4:33 PM FLATTENING MACHINE OPERATOR Narrative [facility] - 07/12/2024 2:09 PM FLATTENING MACHINE OPERATOR FASTING:NO FASTING: NO Mirta Villegas MD MICROBIOLOGY [facility] [address] [place] [address], [place] [phone] [facility] [address] [place] [address] * (ABNORMAL) POCT Urinalysis Dipstick Only (05/28/2024 10:09 AM CDT) PH 7.0 5.0 - 8.0 [facility] SPECIFIC GRAVITY 1.010 1.001 - 1.035 [facility] GLUCOSE NEGATIVE NEGATIVE [facility] BILIRUBIN NEGATIVE NEGATIVE [facility] KETONES NEGATIVE NEGATIVE [facility] OCCULT BLOOD NEGATIVE NEGATIVE [facility] PROTEIN NEGATIVE NEGATIVE [facility] NITRITE NEGATIVE NEGATIVE [facility] LEUKOCYTE ESTERASE TRACE(A) NEGATIVE [facility] Urine URINE SPECIMEN / Unknown 05/28/2024 10:09 AM CDT 05/28/2024 10:09 AM CDT Saskia Jamison DO URINE [facility] [address] [place] [address], [place] [phone] [facility] [address] [place] [address] * (ABNORMAL) LIPID PANEL W REFLEX MEASURED LDL [[id number]] (10/31/2023 10:58 AM FLATTENING MACHINE OPERATOR) CHOLESTEROL,TOTAL 246(H) 100 - 199 mg/dL 10/31/2023 6:19 PM FLATTENING MACHINE OPERATOR [facility] Comment: Cholesterol, Total Reference Ranges Desirable <200 mg/dL Borderline 200-239 mg/dL High >=240 mg/dL TRIGLYCERIDES 46 <150 mg/dL 10/31/2023 6:19 PM [facility] HDL CHOLESTEROL 105 >40 mg/dL 6:19 PM [facility] NON-HDL CHOLESTEROL 141 <145 mg/dl 10/31/2023 6:19 PM [facility] CHOL/HDL RATIO 2.34 <4.50 10/31/2023 6:19 PM [facility] LDL CHOLESTEROL 132(H) <=130 mg/dL 10/31/2023 6:19 PM [facility] VLDL CHOLESTEROL 9 <=30 mg/dL 10/31/2023 6:19 PM [facility] PROVIDER ORDERED STATUS RANDOM 10/31/2023 6:19 PM [facility] Blood BLOOD SPECIMEN / Unknown Venipuncture / Unknown 10/31/2023 10:58 AM FLATTENING MACHINE OPERATOR 10/31/2023 10:58 AM FLATTENING MACHINE OPERATOR Mirta Villegas MD CHEMISTRY [facility] [address] [place] [address], * XR MAMMO MATHEUS BILAT SCREEN (01/09/2023 9:16 AM CDT) Anatomical Region Laterality Modality BREASTS, Breast Left, Breast Right Bilateral Mammography Impressions 01/09/2023 9:20 AM CDT There is no radiographic evidence for malignancy. Recommend annual mammograms. MAMMOGRAM ASSESSMENT: ACR 2 Benign PATIENTS: You will also receive a letter with your examination results in an easy to read format. If you have questions about your results, please contact your referring provider. Narrative 01/09/2023 9:20 AM CDT For Patients: As a result of the Cures Act, medical imaging exams and procedure reports are released immediately into your electronic medical record. You may view this report before your referring provider. If you have questions, please contact your health care provider. XR MAMMO MATHEUS BILAT SCREEN [[id number]] CLINICAL HISTORY: This is an asymptomatic 67 y.o. patient. INDICATION FOR EXAM: Mammogram Screening. TECHNIQUE: CC & MLO views were obtained. This study was evaluated with the assistance of Computer-Aided Detection. Breast Tomosynthesis was used in interpretation. COMPARISON FILMS: Yes 12/22/21 [facility] 12/17/20 [facility] FINDINGS: The breasts have scattered areas of fibroglandular density. No suspicious masses or microcalcifications. There are post treatment changes of left breast. Shari Fowler MD MAMMO * (ABNORMAL) XR DXA BONE DENSITY 2 SITES AXIAL [30156.1] (04/14/2020 11:01 AM CDT) Anatomical Region Laterality Modality Spine, HIPS, HIPL, HIPR Other Narrative 04/17/2020 9:10 AM CDT Please see scanned document for results of this study. Mirta Villegas MD DEXA * COLONOSCOPY (12/11/2018 2:10 PM CDT) 12/11/2018 2:10 PM CDT Narrative Transcriptions Jamel Schaefer MD - 12/11/2018 3:35 PM CDT Patient Name: Deana Gauthier Procedure Date: 12/11/2018 Gender: Female Date of : 1955 Admit Type: Outpatient Procedure: Colonoscopy Proceduralist: Jamel Schaefer MD , Francie Hinton, RN(Nurse) Referring MD: Mirta Villegas Indications/Pre-Op Diagnosis: Surveillance: Personal history ofadenomatous polyps on last colonoscopy > 5 years ago,Last colonoscopy: August 2009 Medications: Fentanyl 100 micrograms IV, Midazolam 4 mgIV, The level of sedation administered wasmoderate Procedure Description: The patient had risks, benefits and alternatives explained to andgave informed consent. The patient had a stable cardiopulmonary status and judged an adequate candidate for conscious sedation. The Colonoscope was passed through the anus and advanced to thececum, identified by appendiceal orifice and ileocecal valve. Thecolonoscopy was performed without difficulty. The patient tolerated the procedure well. The quality of the bowel preparation was good. The ileocecal valve, appendiceal orifice, and rectum were photographed. Complications: No immediate complications. Estimated Blood Loss & Specimen: Estimated blood loss: none. Specimen collected - None Findings: The perianal and digital rectal examinations were normal. The entire examined colon appeared normal on direct and retroflexion views. Impressions/Post-Op Diagnosis: - The entire examined colon is normal on direct and retroflexionviews. - No specimens collected. Recommendation: - Patient has a contact number available for emergencies. The signsand symptoms of potential delayed complications were discussed with the patient. Return to normal activities tomorrow. Written discharge instructions were provided to the patient. - Resume previous diet. - Continue present medications. - Repeat colonoscopy in 5 years for surveillance. Moderate Sedation: Moderate (conscious) sedation was administered by the endoscopy nurse and supervised by the endoscopist. The following parameters were monitored: oxygen saturation, heart rate, respiratory rate, blood pressure, adequacy of pulmonary ventilation and reponse to care. [facility] and nursing notes for moderate sedation details. Total physician intraservice time was 16 minutes. Jamel Schaefer MD 12/11/2018 3:34:48 PM This report has been signed electronically. Note Initiated On: 12/11/2018 2:10 PM Procedure Code(s): --- Professional --- 73336, Colonoscopy, flexible; diagnostic, including collection of specimen(s) bybrushing or washing, when performed (separateprocedure) Diagnosis Code(s): --- Professional --- Z86.010, Personal history of colonicpolyps CPT copyright 2017 [employer]. All rights reserved. The codes documented in this report are preliminary and upon physician coder reviewmay be revised to meet current compliance requirements. Scope In: 3:15:35 PM Scope Withdrawal Time 0 hours 6 minutes 25 seconds Scope Out: 3:29:32 PM Jamel Schaefer MD PROCEDURE ORD from Last 3 Months or Most Recently Relevant to Health Maintenance Advance Directives Documents on File Type Date Recorded Patient Clinical Psychology Teacher Expl anation Healthcare Directive 11/02/2017 12:46 PM HC Pepito Gauthier * Full Code (Latest Code Status on File) Date Activated Date Inactivated Comments 08/14/2019 9:34 AM 08/14/2019 7:25 PM * Full Code Date Activated Date Inactivated Comments 02/18/2019 1:30 PM 02/18/2019 9:02 PM Care Teams Aquaculture Farmer Relationship Specialty Start Date End Date Mirta Villegas MD [address] [place] [address] PCP - General 04/03/09 Susie Diaz MD [address] [place] [address] Surgery - Oncology 02/07/19 Paulo Alva MD [address] [place] [address] Hematology and Oncology 02/13/19 Shari Fowler MD [address] [place] [address] Surgery - General 05/17/19
--- OUTSIDE RECORDS SUMMARY | 2024-07-23 15:08 | XMS_ITS ---
Author Organization [facility] Address [address] [place] [address] Care Team Providers Care Body Piercer Name Role Phone Elsewhere, Pcp Primary Care Provider Unavailabl e Active Problems * This document contains information received from the source organization and may not represent a complete record from that organization. 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 on 08/23/2019 Pathologic stage from 08/14/2019:No Stage Recommended(ypT1c, pN0(sn), cM0, G3, ER-, VT-, HER2-) - Signed by Benny Pizarro M.D. on 08/23/2019 Clinical stage from 11/19/2023:Stage IIIC(rcT0, cN3c, cM0, G3, ER-, VT-, HER2-) - Signed by Anant Jones M.D. on 01/18/2024 Benign Neoplasm Colon 09/23/2009 Overview (01/10/2024): Colonoscopy 08/2009 polyp, repeat in 5 years Colonoscopy 11/2018 normal, repeat in 5 years Current Oncology Plans No current plan information found. Past Plans No past plan information found. Radiation Treatments * Plan Last Treated On Elapsed Days Fractions Treated Prescribed Fraction Dose Prescribed Total Dose F16 LbrstB 10/14/2019 26 4 of 4 250 cGy 1,000 cGy F1 Lbreast 10/08/2019 20 15 of 15 267 cGy 4,005 cGy Reference Point Last Treated On Elapsed Days Session Dose Total Dose [id number] 10/14/2019 26 250 cGy 5,005 cGy
[2024-07-23 15:28] LABS: Basophils Percent Auto 0.1 % (0.0-3.0); Eosinophils Percent Auto 1.8 % (0.0-7.0); Hemoglobin* 14.2 gm/dL (12.0-16.0); Lymphocytes Percent Auto 5.1 % (20-44); Mean Corpuscular HGB Conc 33 gm/dL (32-36); Mean Corpuscular Hemoglobin 28 pg (26-34); Mean Corpuscular Volume 85 fL (80-100); Monocytes Percent Auto 6.6 % (0.0-11.0); Neutrophils Percent Auto 85.4 % (42.0-72.0); Platelet Count* 228 K/uL (140-440); RDW Coefficient of Variation % 12.2 % (11.5-15.5); Red Blood Count 5.05 m/uL (4.00-5.20); White Blood Count* 14.81 K/uL (4.50-11.00)
[2024-07-23 15:29] LABS: Slide Review Reflex No
[2024-07-23 15:31] LABS: Albumin* 4.4 g/dL (3.3-5.0); Chloride* 96 mmol/L (96-114)
[2024-07-23 15:32] LABS: Potassium* 4.5 mmol/L (3.6-5.1); Sodium* 132 mmol/L (135-149)
[2024-07-23 15:34] LABS: Alkaline Phosphatase* 90 U/L (40-150); Anion Gap 8 mEq/L (7-15); Aspartate Amino Transferase* 52 U/L (12-35); Bilirubin Total* 0.2 mg/dL (0.1-1.5); Blood Urea Nitrogen* 16 mg/dL (7-30); Carbon Dioxide* 28 mmol/L (20-32); Creatinine* 0.8 mg/dL (0.5-1.5); Estimated Glomerular Filt Rate 79 ml/min; Glucose* 93 mg/dL (60-115); Total Protein* 7.2 g/dL (6.0-8.3)
[2024-07-23 15:35] LABS: Alanine Aminotransferase* 43 U/L (4-35); Calcium* 9.7 mg/dL (8.4-10.6)
== END 2024-07-23 17:14 | disposition home or self-care (01) ==
PROVIDERS: Emergency Provider Emergency Medicine; PCP Family Medicine
DX: R21 Rash and other nonspecific skin eruption (principal); R79.89 Other specified abnormal findings of blood chemistry
CPT/HCPCS: 36415; 80053; 85025; 99283

== ENCOUNTER 2025-04-24 18:30 | Emergency (ER) | payer MEDICARE, SELFPAY ==
--- OUTSIDE RECORDS SUMMARY | 2025-04-24 18:33 | XMS_ITS | Clinical Summary ---
Author Organization [facility] Address [address] [place] [address] Care Team Providers Care Prepress Proofer Name Role Phone Mirta Villegas MD Primary Care Provide r Susie Diaz MD Unavailable Unavai Paulo James MD Unavailable [phone] Shari Fowler MD Unavailable Unavailable Allergies Active Allergy Reactions Criticality Noted Date Comments Amoxicillin Rash 07/29/2024 House Dust Runny Nose,Headache 08/15/2008 Sulfa (Sulfonamide Antibiotics) Hives 12/27 fever Medications fish oil-omega-3 fatty acids (FISH OIL) 1,200-360 mg cap Take 1 capsule by mouth once daily. 2 capsule 0 4 Active azelastine 137 mcg/actuation (ASTELIN) nasal sprayIndications:Ch ronic allergic rhinitis, unspecified seasonality, unspecified trigger Inhale 1 [place] in the nostril(s) 2 times daily. 1 Bottle 3 8 Active ibuprofen (ADVIL; MOTRIN) 200 mg tablet Take 2 tablets by mouth every 6 hours if needed for Pain. Maximum of 3200 mg in 24 hours. 9 Active medication order composer Vitamin D3 0 0 Active medication order composerIndications :History of breast cancer Take 1 Tablet by mouth once daily. Calcium with vitamin D 0 1 Active wn-njl-DG-vit T-xlaqfi-eutcezp (PreserVision AREDS 2 Plus MV) 200 mcg-15 mcg- 5 mg-1 mg capIndications:Hist ory of breast cancer Take by mouth. 0 3 Active melatonin 1 mg chew Chew by mouth. 0 3 Active IVERMECTIN ORAL Take 24 mg by mouth. Active metFORMIN (GLUCOPHAGE XR) 500 mg Extended-Release tablet 4 Active wkxpe-7-ZSM-EPA-fis h oil 300-1,000 mg capsule Take 1 g by mouth. Active ondansetron (ZOFRAN ODT) 4 mg disintegrating tablet DISSOLVE 1 TABLET IN MOUTH EVERY 6 HOURS NEEDED FOR NAUSEA 4 Active zolpidem 5 mg tabletIndications:I nsomnia, idiopathic Take 1 Tablet (5 mg) by mouth at bedtime if needed for Sleep. 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 10/31/2023 Malignant neoplasm of overla pping sites of left breast in female, estrogen receptor negative 06/17/2019 Cancer Staging:Clinical:Stage IIB(cT2, cN0, cM0, G3, ER-, TX-, HER2-) - Signed by Shari Fowler MD on 06/17/2019 Pathologic stage from 08/14/2019: ypT1c, ypN0, cM0, G3, ER-, TX-, HER2- - Signed by Gabbi Gates PA on [...] Encounters Date Type Department Care Team Description 04/24/2025 Nurse Triage [facility] [address] [place] [address] Mirta Villegas MD Musculoskeletal Problem (Decreased range of motion as well) from Last 3 Months Immunizations Immunization Administration Dates Next Due Hepatitis A (Adult) [...] is your housing situation today? 1 10/31/2023 Interpersonal Safety Answer Date Record ed Are you being hit, kicked, p ushed or yelled at (see row info)? No 07/22/2024 Interpersonal Safety Abuse 12 - 18 Not on file 07/22/2024 Interpersonal Safety Ambulatory Vulnerability No t on file 07/22/2024 Utilities Answer Date Recorded Do you have trouble paying f or utilities (for example, heat, electricity, water, phone)? 1 10/31/2023 Comments No Sex and Gender Information Value Date Recorded Sex Assigned at Not on file Legal Sex Female 5:23 AM ALUMINUM FABRICATION SUPERVISOR Gender Identity Not on file Sexual Orientation Not on file Occupation Industry Job Start Date Job End Date HOMEMAKER Not on file Not on file Not on file Obstetrics History Last Filed Vital Signs Vital Sign Reading Time Taken Comments Blood Pressure 90/68 07/29/2024 10:30 AM ALUMINUM FABRICATION SUPERVISOR Pulse 76 07/29/2024 10:30 AM ALUMINUM FABRICATION SUPERVISOR Temperature 37.3 C (99.1 F) 07/22/2024 1:50 PM ALUMINUM FABRICATION SUPERVISOR Respiratory Rate 16 07/29/2024 10:30 AM ALUMINUM FABRICATION SUPERVISOR Oxygen Saturation 96% 07/22/2024 4:41 PM ALUMINUM FABRICATION SUPERVISOR Inhaled Oxygen Concentration - - Weight 66.2 kg (146 lb) 07/29/2024 10:30 AM ALUMINUM FABRICATION SUPERVISOR Height 167.6 cm (5' 6) 07/22/2024 1:50 PM ALUMINUM FABRICATION SUPERVISOR Body Mass Index 23.57 07/22/2024 1:50 PM ALUMINUM FABRICATION SUPERVISOR Plan of Treatment Upcoming Encounters Date Type Department Care Team (Late st Contact Info) Description 04/25/2025 9:30 AM CDT Appointment [facility] [address] [place] [address] Health Maintenance Due Date Last Done Comments COVID-19 vaccine series (#1) 1958 Hepatitis C screening for age 18-79 1971 Pneumococcal series for age 50+ (1 of 2 - PCV) 1972 Zoster (shingles) series for age 50+ (1 of 2) 1972 Tetanus booster 04/05/2022 04/05/2012, 07/10/1996 Colonoscopy through age 75 12/12/202312/11, 12/11/2018, 12/11/2018, Additional history exists Mammogram for age 45-75 01/10/2024 01/10/20 23, 12/22/2021, 12/17/2020, Additional history exists BMI (ht and wt on same day) for age 18+ 10/30/2024 10/31/2023, 01/09/2023, 12/22/2021, Additional history exists Medicare Wellness for age 65+ 10/31/2024 10/31/2023 Depression screening for age 12+ 11/01/2024 11/02/2023, 10/31/2023, 10/31/2023, Additional history exists Influenza Vaccine (#1) 2025 RSV vaccine for adults or (1 - 1-dose 75+ series) 2028 Lipids for age 45-75 10/30/2028 10/31/2023 DEXA/DXA scan for age 65+ Completed 04/14/2020 Hepatitis B series for 19+ Aged Out N o longer eligible based on patient's age to complete this topic Medical Devices Implanted Type Area Medical Donation Professional Device Identifier Shelf Expiration Date Model / Serial / Lot Port Low Profile Slim W/6fr 1 [employer] - [id number] Implanted:Qty: 1 on 02/18/2019 by Susie Diaz MD at [facility] [place] [facility] Right: Jugular Vein [employer] 05/27/2020 [id number] / / [id number] Procedures Procedure Name Priority Date/Time Associated Diagnosis Comments LIPID PANEL W REFLEX MEASURED LDL Routine 10/31/2023 10:58 AM ALUMINUM FABRICATION SUPERVISOR Screening for cardiovascular condition XR MAMMO MATHEUS BILAT SCREEN Routine 01/09/2023 9:16 AM CDT Visit for screening mammogram XR DXA BONE DENSITY 2 SITES AXIAL Routine 04/14/2020 11:01 AM CDT Screening for osteoporosis Menopausal syndrome (hot flashes) Vitamin D deficiency Disorder of bone and cartilage terminal carman (current) use of systemic steroids shelter (current) use of inhaled steroids Postmenopausal COLONOSCOPY 12/11/2018 2:10 PM CDT from Last 3 Months or Most Recently Relevant to Health Maintenance Results * (ABNORMAL) LIPID PANEL W REFLEX MEASURED LDL [[id number]] (10/31/2023 10:58 AM ALUMINUM FABRICATION SUPERVISOR) CHOLESTEROL,TOTAL 246(H) 100 - 199 mg/dL 10/31/2023 6:19 PM ALUMINUM FABRICATION SUPERVISOR [facility] Comment: Cholesterol, Total Reference Ranges Desirable <200 mg/dL Borderline 200-239 mg/dL High >=240 mg/dL TRIGLYCERIDES 46 <150 mg/dL 10/31/2023 6:19 PM ALUMINUM FABRICATION SUPERVISOR [facility] HDL CHOLESTEROL 105 >40 mg/dL 6:19 PM ALUMINUM FABRICATION SUPERVISOR [facility] NON-HDL CHOLESTEROL 141 <145 mg/dl 10/31/2023 6:19 PM ALUMINUM FABRICATION SUPERVISOR [facility] CHOL/HDL RATIO 2.34 <4.50 10/31/2023 6:19 PM ALUMINUM FABRICATION SUPERVISOR [facility] LDL CHOLESTEROL 132(H) <=130 mg/dL 10/31/2023 6:19 PM [facility] VLDL CHOLESTEROL 9 <=30 mg/dL 10/31/2023 6:19 PM ALUMINUM FABRICATION SUPERVISOR [facility] PROVIDER ORDERED STATUS RANDOM 10/31/2023 6:19 PM [facility] Blood BLOOD SPECIMEN / Unknown Venipuncture / Unknown 10/31/2023 10:58 AM ALUMINUM FABRICATION SUPERVISOR 10/31/2023 10:58 AM ALUMINUM FABRICATION SUPERVISOR us Mirta Villegas MD CHEMISTRY Final Result [facility] [address] [place] [address], [place] * XR MAMMO MATHEUS BILAT SCREEN (01/09/2023 [...] For Patients: As a result of the Century Cures Act, medical imaging exams and procedure reports are released immediately into your electronic medical record. You may view this report before your referring provider. If you have questions, please contact your health care provider. XR MAMMO MATHEUS BILAT SCREEN [[id number]] CLINICAL HISTORY: This is an asymptomatic 67 [...] are post treatment changes of left breast. us Shari Fowler MD MAMMO Final Result * (ABNORMAL) XR DXA BONE DENSITY 2 SITES AXIAL [36819.1] (04/14/2020 11:01 AM CDT) Anatomical Region Laterality Modality Spine, HIPS, HIPL, HIPR Other Narrative 04/17/2020 9:10 AM CDT Please see scanned document for results of this study. us Mirta Villegas MD DEXA Final Result * COLONOSCOPY (12/11/2018 2:10 PM CDT) 12/11/2018 [...] reponse to care. [facility] flow[facility]ets and nursing notes for moderate sedation details. Total physician intraservice time was 16 minutes. Jamel Schaefer MD 12/11/2018 3:34:48 PM This report has been signed electronically. Note Initiated On: 12/11/2018 2:10 PM Procedure Code(s): --- Professional --- 82671, Colonoscopy, flexible; diagnostic, including collection of specimen(s) bybrushing or washing, when performed (separateprocedure) Diagnosis Code(s): --- Professional --- Z86.010, Personal history of colonicpolyps CPT copyright 2017 [employer]. All rights reserved. The codes documented in this report are preliminary and upon diesel technology instructor reviewmay be revised to meet current compliance requirements. Scope In: 3:15:35 PM Scope Withdrawal Time 0 hours 6 minutes 25 seconds Scope Out: 3:29:32 PM Jamel Schaefer MD PROCEDURE ORD Final Res ult from Last 3 Months or Most Recently Relevant to Health Maintenance Insurance MEDICARE PART A HB ONLY [facility] MEDICARE ADVANTAGE MEDICARE PART A HB ONLY Advance Directives Documents on File Type Date Recorded Patient Gusset Maker Expl anation Healthcare Directive 11/02/2017 12:46 PM HC Pepito Gauthier * Full Code (Latest Code Status on File) Date Activated Date Inactivated Comments 08/14/2019 9:34 AM 08/14/2019 7:25 PM * Full Code Date Activated Date Inactivated Comments 02/18/2019 1:30 PM 02/18/2019 9:02 PM Care Teams Prepress Proofer Relationship Specialty Start Date End Date Mirta Villegas MD [address] [place] [address] PCP - General 04/03/09 Susie Diaz MD [address] [place] [address] [address] Surgery - Oncology 02/07/19 [place] [address] [address] Hematology and Oncology 02/13/19 [place] [address] [address] Surgery - General 05/17/19
--- OUTSIDE RECORDS SUMMARY | 2025-04-24 18:33 | XMS_ITS | Encounter Summary ---
Author Organization [facility] Address [address] [place] [address] Care Team Providers Care Picking Machine Operator Name Role Phone Elsewhere, Pcp Primary Care Provider Unavailabl e Reason for Referral * MRI/CAT/PET Scan (Routine) - Authorized Specialty Diagnoses / Procedures Referred By Contac t Referred To Contact Radiology Diagnoses Malignant Neoplasm Of Breast Lower Outer Quadrant Female Left (HCC) Procedures CT Shoulder Left without and with IV Contrast Milena Levine P.A.-C., M.S. [address] [place] [address] Phone: tel: fax: [facility] Region Referral ID Status Reason Start Date Expiration Date V isits Requested Visits Authorized [id number] Authorized 04/22/2025 07/23/2026 1 1 Encounter Details Date Type Department Care Team (Late st Contact Info) Description 04/22/2025 Clinical Communication Department of Radiation Oncology in [place], [place] [address] [place] [address] Benny Pizarro M.D. [address] [place] [phone] Social History Tobacco Use Types Packs/Day Years Used Date Smoking Tobacco: Never Passive Smoke Exposure: Past Smokeless Tobacco: Never Alcohol Use Standard Drinks/Week Comments Never 0 (1 standard drink = 0.6 oz pur e alcohol) [facility] Utilities Answer Date Recorded In the past 12 months has th e electric, gas, oil, or water company threatened to shut off services in your home? No 01/16/2024 Hunger Vital Sign Answer Date Recorded [...] things needed for daily living? No 01/16/2024 Housing Stability Answer Date Recorded What is your living situation today? I have a [facility] place to live 01/16/2024 Comments No Sex and Gender Information Value Date Recorded Sex Assigned at Choose not to disclose 10:31 PM CDT Legal Sex Female 8:17 PM ORGANIC CHEMIST Gender Identity Female 01/16/2024 10:31 PM CDT Sexual Orientation Straight 01/16/2024 10 :31 PM CDT documented as of this encounter Miscellaneous Notes * Telephone Encounter - Milena Levine P.A.-C., M.S. - 04/22/2025 2:52 PM CDT I returned the patient's phone call and spoke to her directly. She reports left shoulder weakness and numbness that has been present for 2-3 weeks and is getting worse. She reports that she isn't really experiencing pain of the area, but she does have decreased range of motion. 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 She denies swelling of the arm. We discussed that she is scheduled for a CT scan of the neck on Monday for further evaluation of the PET-avid lymph nodes in her left neck. She has requested adding on imaging of the left shoulder onFriday as well for further evaluation. We discussed that they could possibly add on a CT scan of the left shoulder; however, we also reviewed that her symptoms seem to be more nerve- related, which isactually better evaluated with a MRI scan instead of a CT. A CT scan could still provide useful information in terms of evaluation of the bones and tissues of the area though and is a reasonable starting point if it can be coordinated with her other scan. After our discussion, the patient stated that she would like to start with a CT scan of the left shoulder. I will order for this to be performed, requesting for it to be coordinated on Monday with her other imaging. If this is not able to be coordinated, then we will wait and review the results of her neck CT prior to proceeding with any additional imaging of the left shoulder. The patient verbally expressed her understanding and agreement. Milena Levine P.A.-C., M.S. * Telephone Encounter - Jose A Mcgrath - 04/22/2025 2:01 PM CDT Other Reason for Call Caller: Tiffanie Relationships to patient: Self Reason for call: Deana called to report that she has been experiencing left sided shoulder pain and weakness. She has an upcoming CT scan ordered by JLArlette on 04/25 and she is requesting that a view ofher left shoulder be added since she will be there already. I let her know I would send a message to the care team to discuss. Deana can be reached at [phone] documented in this encounter Plan of Treatment Upcoming Encounters Date Type Department Care Team (Late st Contact Info) Description 04/25/2025 9:30 AM CDT Appointment Department of Radiology in [place], [place] [address] [place] [address] Milena Levine P.A.-C., M.S. [address] [place] [address] Discharge Disposition: Home or Self Care Scheduled Orders Name Type Priority Associated Diagnoses Order Schedule CT Shoulder Left without and with IV Contrast Imaging RAD - Routine (most inpatients and all outpatients) Malignant Neoplasm Of Breast Lower Outer Quadrant Female Left (HCC) Expected: 04/25/2025, Expires: 07/23/2026 Creatinine with Estimated GFR Lab Routine Malignant Neoplasm Of Breast Lower Outer Quadrant Female Left (HCC) 1 Occurrences starting 04/22/2025 until 07/23/2026 documented as of this encounter Visit Diagnoses Diagnosis Malignant Neoplasm Of Breast Lower Outer Quadrant Female Left (HCC)- Primary documented in this encounter Care Teams Picking Machine Operator Relationship Specialty Start Date End Date Elsewhere, Pcp PCP - General Reliability Technicians 08/23/19 documented as of this encounter
--- OUTSIDE RECORDS SUMMARY | 2025-04-24 18:33 | XMS_ITS ---
Author Name Interface, [id number] lity Address [address] [facility] [address] [address] [facility] Address [address] [facility] [address] [address] Allergies and Adverse Reactions Medication/Group Name Reaction Severity Date Sulfa (Sulfonamide Antibiotics) Rash, Fever 01/17/2025 Dust mites 01/17/2025 Plan Date Type Value 05/28/2025 APPOINTMENT OV 20 MIN 01/17/2025 APPOINTMENT OV 20 MIN 01/13/[address] WHOLE BOD Y 30 MIN 01/13/2025 APPOINTMENT LAB 15 MIN 01/13/2025 APPOINTMENT PORT DRAW 15 MIN 01/13/2025 APPOINTMENT PORT DRAW 15 MIN 11/29/2024 APPOINTMENT OV 20 MIN 10/07/2024 APPOINTMENT OV 20 MIN 07/10/2024 APPOINTMENT OV 20 MIN 07/05/[address] WHOLE BOD Y 30 MIN 01/30/2024 APPOINTMENT OV 20 MIN 01/01/2024 APPOINTMENT INTERNAL REFERRA L 30 MIN 12/19/2023 APPOINTMENT OV 20 MIN 12/15/2023 APPOINTMENT INTERNAL REFERRA L 60 MIN 01/10/2024 LABORDER U/S breast, left 06/14/2024 LABORDER PET/CT scan, sku ll base/mid thigh 01/13/2025 LABORDER PET/CT scan, sku ll base/mid thigh Reason for Visit OV 20 MIN Encounters Date Name 12/15/2023 Dry mouth 12/15/2023 Primary malignant ne oplasm of female breast (disorder) Immunizations Date Name Route Dose Instructions Refusal Reason Stat us Flu vaccine - Adult Patient declined/rejected Not Administered Flu vaccine - Adult Patient declined/rejected Not Administered Diagnostic Results Date Type Test Units Lower Limit Upper Limit Result Flag Comments Status Ordered By Specimen Source [place] [facility] [place] stand up forklift operator d [place] [facility] [place] up forklift operator carlos 07[place] [facility] [place] up forklift operator d [place] [facility] [place] up forklift operator d [place] [facility] [place] up forklift operator d Medications Date Name Route Dose Frequency Instructions Start Date End Date Status Ivermectin Oral QD active Ascorbic Acid Oral po 1.0 tablet daily active Magnesium Oxide Oral prn active Miscellaneou s Drug BID lactoferin active Zinc Oral active Docosahexano ic Acid-Eicosap entanoic Acid Oral 120 mg-180 mg PO 1.0 capsule BID active Vitamin D3-Vitamin K2 (MK4) Oral 1,000 unit-100 mcg orally 1.0 daily active Mebendazole Oral Chewable BID active Vit C,E-Zn-Coppe k-Gznrut-Qyc maria d Oral 250 mg-90 mg-40 mg-1 mg active Turmeric (Curcumin) Oral QD active 07/08 Diphenhydram ine IV intravenous 50.0 mg Use as Directed Re-initiate treatment only upon physician approval. 2018 active 07/08 Methylpredni solone IV intravenous 125.0 mg Use as Directed Re-initiate treatment only upon physician approval. 2018 active 07/08 Hydrocortiso ne IV intravenous 100.0 mg Use as Directed Re-initiate treatment only upon physician approval. 2018 active 07/08 Epinephrine IM intramuscular ly 0.3 mg PRN anaphylaxis or severe hypersensitivity reaction Re-initiate treatment only upon physician approval. 2018 active 07/01 Diphenhydram ine IV intravenous 50.0 mg Use as Directed Re-initiate treatment only upon physician approval. 2018 active 07/01 Epinephrine IM intramuscular ly 0.3 mg PRN anaphylaxis or severe hypersensitivity reaction Re-initiate treatment only upon physician approval. 2018 active 07/01 Hydrocortiso ne IV intravenous 100.0 mg Use as Directed Re-initiate treatment only upon physician approval. 2018 active 07/01 Methylpredni solone IV intravenous 125.0 mg Use as Directed Re-initiate treatment only upon physician approval. 2018 active 06/24 Methylpredni solone IV intravenous 125.0 mg Use as Directed Re-initiate treatment only upon physician approval. 2018 active 06/24 Hydrocortiso ne IV intravenous 100.0 mg Use as Directed Re-initiate treatment only upon physician approval. 2018 active 06/24 Diphenhydram ine IV intravenous 50.0 mg Use as Directed Re-initiate treatment only upon physician approval. 2018 active 06/24 Epinephrine IM intramuscular ly 0.3 mg PRN anaphylaxis or severe hypersensitivity reaction Re-initiate treatment only upon physician approval. 2018 active 06/17 1 ML epinephrine 1 MG/ML Injection intramuscular ly 0.3 mg Re-initiate treatment only upon physician approval. 2018 active 06/17 diphenhydram ine hydrochlorid e 50 MG/ML Injectable Solution intravenous 50.0 mg Use as Directed Re-initiate treatment only upon physician approval. 2018 active 06/17 methylpredni solone 125 MG Injection intravenous 125.0 mg Use as Directed Re-initiate treatment only upon physician approval. 2018 active 06/17 hydrocortiso ne 100 MG Injection intravenous 100.0 mg Use as Directed Re-initiate treatment only upon physician approval. 2018 active 06/17 Zolpidem Oral ER Tab PO 1.0 TABLET(S ) QHS PRN sleep 2018 active 06/17 Azelastine-F luticasone Nasal [place] 137 mcg-50 mcg/spray 1.0 SPRAY(S) PRN 2018 active 06/17 Ibuprofen Oral PO 1.0 TABLET(S ) Q8H PRN pain 2018 active 06/17 Diphenhydram ine IV intravenous 50.0 mg Use as Directed Re-initiate treatment only upon physician approval. 2018 active 06/10 hydrocortiso ne 100 MG Injection intravenous 100.0 mg Use as Directed Re-initiate treatment only upon physician approval. 2018 active 06/10 1 ML epinephrine 1 MG/ML Injection intramuscular ly 0.3 mg Re-initiate treatment only upon physician approval. 2018 active 06/10 diphenhydram ine hydrochlorid e 50 MG/ML Injectable Solution intravenous 50.0 mg Use as Directed Re-initiate treatment only upon physician approval. 2018 active 06/10 methylpredni solone 125 MG Injection intravenous 125.0 mg Use as Directed Re-initiate treatment only upon physician approval. 2018 active 06/10 Diphenhydram ine IV intravenous 50.0 mg Use as Directed Re-initiate treatment only upon physician approval. 2018 active 06/03 methylpredni solone 125 MG Injection intravenous 125.0 mg Use as Directed Re-initiate treatment only upon physician approval. 2018 active 06/03 1 ML epinephrine 1 MG/ML Injection intramuscular ly 0.3 mg Re-initiate treatment only upon physician approval. 2018 active 06/03 hydrocortiso ne 100 MG Injection intravenous 100.0 mg Use as Directed Re-initiate treatment only upon physician approval. 2018 active 06/03 diphenhydram ine hydrochlorid e 50 MG/ML Injectable Solution intravenous 50.0 mg Use as Directed Re-initiate treatment only upon physician approval. 2018 active 06/03 Diphenhydram ine IV intravenous 50.0 mg Use as Directed Re-initiate treatment only upon physician approval. 2018 active 05/27 hydrocortiso ne 100 MG Injection intravenous 100.0 mg Use as Directed Re-initiate treatment only upon physician approval. 2018 active 05/27 methylpredni solone 125 MG Injection intravenous 125.0 mg Use as Directed Re-initiate treatment only upon physician approval. 2018 active 05/27 1 ML epinephrine 1 MG/ML Injection intramuscular ly 0.3 mg Re-initiate treatment only upon physician approval. 2018 active 05/27 diphenhydram ine hydrochlorid e 50 MG/ML Injectable Solution intravenous 50.0 mg Use as Directed Re-initiate treatment only upon physician approval. 2018 active 05/27 Diphenhydram ine IV intravenous 50.0 mg Use as Directed Re-initiate treatment only upon physician approval. 2018 active 05/20 diphenhydram ine hydrochlorid e 50 MG/ML Injectable Solution intravenous 50.0 mg Use as Directed Re-initiate treatment only upon physician approval. 2018 active 05/20 methylpredni solone 125 MG Injection intravenous 125.0 mg Use as Directed Re-initiate treatment only upon physician approval. 2018 active 05/20 1 ML epinephrine 1 MG/ML Injection intramuscular ly 0.3 mg Re-initiate treatment only upon physician approval. 2018 active 05/20 hydrocortiso ne 100 MG Injection intravenous 100.0 mg Use as Directed Re-initiate treatment only upon physician approval. 2018 active 05/20 Diphenhydram ine IV intravenous 50.0 mg Use as Directed Re-initiate treatment only upon physician approval. 2018 active 05/13 methylpredni solone 125 MG Injection intravenous 125.0 mg Use as Directed Re-initiate treatment only upon physician approval. 2018 active 05/13 1 ML epinephrine 1 MG/ML Injection intramuscular ly 0.3 mg Re-initiate treatment only upon physician approval. 2018 active 05/13 hydrocortiso ne 100 MG Injection intravenous 100.0 mg Use as Directed Re-initiate treatment only upon physician approval. 2018 active 05/13 diphenhydram ine hydrochlorid e 50 MG/ML Injectable Solution intravenous 50.0 mg Use as Directed Re-initiate treatment only upon physician approval. 2018 active 05/13 Diphenhydram ine IV intravenous 50.0 mg Use as Directed Re-initiate treatment only upon physician approval. 2018 active 05/01 hydrocortiso ne 100 MG Injection intravenous 100.0 mg Use as Directed Re-initiate treatment only upon physician approval. 2018 active 05/01 methylpredni solone 125 MG Injection intravenous 125.0 mg Use as Directed Re-initiate treatment only upon physician approval. 2018 active 05/01 1 ML epinephrine 1 MG/ML Injection intramuscular ly 0.3 mg Re-initiate treatment only upon physician approval. 2018 active 05/01 diphenhydram ine hydrochlorid e 50 MG/ML Injectable Solution intravenous 50.0 mg Use as Directed Re-initiate treatment only upon physician approval. 2018 active 05/01 Diphenhydram ine IV intravenous 50.0 mg Use as Directed Re-initiate treatment only upon physician approval. 2018 active 04/22 methylpredni solone 125 MG Injection intravenous 125.0 mg Use as Directed Re-initiate treatment only upon physician approval. 2018 active 04/22 hydrocortiso ne 100 MG Injection intravenous 100.0 mg Use as Directed Re-initiate treatment only upon physician approval. 2018 active 04/22 1 ML epinephrine 1 MG/ML Injection intramuscular ly 0.3 mg Re-initiate treatment only upon physician approval. 2018 active 04/22 diphenhydram ine hydrochlorid e 50 MG/ML Injectable Solution intravenous 50.0 mg Use as Directed Re-initiate treatment only upon physician approval. 2018 active 04/22 Diphenhydram ine IV intravenous 50.0 mg Use as Directed Re-initiate treatment only upon physician approval. 2018 active 04/08 diphenhydram ine hydrochlorid e 50 MG/ML Injectable Solution intravenous 50.0 mg Use as Directed Re-initiate treatment only upon physician approval. 2018 active 04/08 methylpredni solone 125 MG Injection intravenous 125.0 mg Use as Directed Re-initiate treatment only upon physician approval. 2018 active 04/08 1 ML epinephrine 1 MG/ML Injection intramuscular ly 0.3 mg Re-initiate treatment only upon physician approval. 2018 active 04/08 hydrocortiso ne 100 MG Injection intravenous 100.0 mg Use as Directed Re-initiate treatment only upon physician approval. 2018 active 04/08 Pegfilgrasti m Subcutaneous subcutaneousl y 6.0 mg 04/08 on hold 03/25 hydrocortiso ne 100 MG Injection intravenous 100.0 mg Use as Directed Re-initiate treatment only upon physician approval. 2018 active 03/25 diphenhydram ine hydrochlorid e 50 MG/ML Injectable Solution intravenous 50.0 mg Use as Directed Re-initiate treatment only upon physician approval. 2018 active 03/25 methylpredni solone 125 MG Injection intravenous 125.0 mg Use as Directed Re-initiate treatment only upon physician approval. 2018 active 03/25 1 ML epinephrine 1 MG/ML Injection intramuscular ly 0.3 mg Re-initiate treatment only upon physician approval. 2018 active 03/11 diphenhydram ine hydrochlorid e 50 MG/ML Injectable Solution intravenous 50.0 mg Use as Directed Re-initiate treatment only upon physician approval. 2018 active 03/11 methylpredni solone 125 MG Injection intravenous 125.0 mg Use as Directed Re-initiate treatment only upon physician approval. 2018 active 03/11 hydrocortiso ne 100 MG Injection intravenous 100.0 mg Use as Directed Re-initiate treatment only upon physician approval. 2018 active 03/11 1 ML epinephrine 1 MG/ML Injection intramuscular ly 0.3 mg Re-initiate treatment only upon physician approval. 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 Headache (finding) Active Dry mouth Active Person counseled Active Vital Signs Date Type Value 12/15/2023 BMI 26.07 12/15/2023 Height 66.50 12/15/2023 Weight 164.00 12/15/2023 Pain Scale 0.00 12/15/2023 BSA 1.85 12/15/2023 Oxygen Saturation 98.00 12/15/2023 Respiratory Rate 18.00 12/15/2023 Heart Beat 74.00 12/15/2023 Body Temperature 97.80 12/15/2023 Intravascular Systolic 134 12/15/2023 Intravascular Diastolic 86 12/19/2023 BSA 1.85 12/19/2023 BMI 26.26 12/19/2023 Height 66.50 12/19/2023 Weight 165.20 12/19/2023 Pain Scale 4.00 12/19/2023 Intravascular Systolic 124 12/19/2023 Intravascular Diastolic 76 12/19/2023 Oxygen Saturation 98.00 12/19/2023 Respiratory Rate 16.00 12/19/2023 Body Temperature 97.10 12/19/2023 Heart Beat 87.00 01/01/2024 Intravascular Systolic 126 01/01/2024 Intravascular Diastolic 78 01/01/2024 Body Temperature 97.30 01/01/2024 Heart Beat 78.00 01/01/2024 Respiratory Rate 16.00 01/01/2024 Oxygen Saturation 96.00 01/01/2024 Pain Scale 0.00 01/01/2024 Weight 163.80 01/01/2024 Height 66.50 01/01/2024 BMI 26.04 01/01/2024 BSA 1.85 01/30/2024 Body Temperature 97.50 01/30/2024 Heart Beat 71.00 01/30/2024 Respiratory Rate 16.00 01/30/2024 Oxygen Saturation 96.00 01/30/2024 BSA 1.82 01/30/2024 Weight 157.80 01/30/2024 Height 66.50 01/30/2024 BMI 25.09 01/30/2024 Intravascular Systolic 124 01/30/2024 Intravascular Diastolic 78 07/10/2024 BSA 1.79 07/10/2024 BMI 24.10 07/10/2024 Height 66.50 07/10/2024 Weight 151.60 07/10/2024 Pain Scale 0.00 07/10/2024 Intravascular Systolic 126 07/10/2024 Intravascular Diastolic 88 07/10/2024 Oxygen Saturation 99.00 07/10/2024 Respiratory Rate 16.00 07/10/2024 Body Temperature 97.60 07/10/2024 Heart Beat 93.00 11/29/2024 Intravascular Systolic 122 11/29/2024 Intravascular Diastolic 72 11/29/2024 Oxygen Saturation 100.00 11/29/2024 Weight 145.60 11/29/2024 Height 66.50 11/29/2024 BMI 23.15 11/29/2024 BSA 1.76 11/29/2024 Respiratory Rate 16.00 11/29/2024 Heart Beat 74.00 11/29/2024 Body Temperature 98.00 11/29/2024 Pain Scale 0.00 01/17/2025 Intravascular Systolic 120 01/17/2025 Intravascular Diastolic 82 01/17/2025 Oxygen Saturation 99.00 01/17/2025 Respiratory Rate 16.00 01/17/2025 Heart Beat 74.00 01/17/2025 Body Temperature 97.80 01/17/2025 Height 66.50 Notes Section * Surg Invasive Consult Patient Name:??KIMBERLY ZHU Date of :??1955 Date of Service:??12/15/2023 Attending Physician:?Amparo Bashir (Hematology/Oncology), Chayito Chung (Surgical Oncology) INITIAL BREAST SURGICAL CONSULTATION Reason for Consult: New diagnosis recurrent TNBC ? History of Present Illness: 68 year old female with history of a clinical T2N0M0 TNBC, s/p neoadjuvant chemotherapy, bracketed lumpectomy and sentinel lymph node biopsy, followed by radiation therapy. Final pathology [id number].Residual 12 mm of invasive carcinoma, associated DCIS, margins 2 mm medial for DCIS and 3 mm medialfor invasive, 2 negative lymph nodes without treatment effect.?? She had negative genetic testing ([employer], 33 breast/resident care assistant/colon panel) which was negative in 05/2019. She had a robotic assisted supracervical hysterectomy with BSO in 2019.?? She saw her PCP who noted a lump in her left low neck. CT neck showed left suprclavicular lymph nodes measuring [id number] mm.?? She had a CT guided biopsy on 11/07 at [facility] with sedation. It is unclear to me if it was inaccessiblewith ultrasound? She did not have a clip placed. This showed metastatic carcinoma of breast origin, triple negative. She had previously followed with Dr. Avla. Has since established with Dr. Bashir. She had a PET scan 11/22 that showed only uptake in the left supraclavicular nodes 18x11 mm and an additional subcentimeter node in the same region. She had a brain MRI 11/23 that was negative for metastatic disease.?? I have reviewed her recent CT neck, PET, CT brain, pathology from the biopsy, and Dr. Bashir's notes. Patient was referred to my clinic by Dr. Bashir Family History reviewed - negative genetic testing Past Medical and Surgical History * Uterine prolapse and polyp; s/p hysterectomy and BSO * Allergic rhinitis * insomnia * Neuropathy * breast cancer as above; breast cancer surgery as above Smoking Status Smoking Status: Smoking Tobacco : Never smoker; Smokeless Tobacco : Never used smokeless tobacco; Vaping : Never vaped Current Medications Medication List Name Date Multivitamins W-Minerals Oral Tablet Turmeric (Curcumin) Oral 12/01/2023 Ibuprofen Oral 06/17/2019 Vitamin C (Ascorbic Acid Oral) 0 Vitamin D3-Vitamin K2 (MK4) Oral 1,000 u nit-100 mcg 12/15/2023 PreserVision AREDS 2 (Vit C, Q-Re-Wxrggc-Lutein-Zeaxan Oral 250 mg-90 mg-40 mg-1 mg) 09/14/2021 Azelastine-Fluticasone Nasal [place] 137 m cg-50 mcg/spray 06/17/2019 Magnesium Oxide Oral 01/25/2023 Zolpidem Oral ER Tab 06/17/2019 Calcium Citrate Oral 10/30/2019 Fish Oil (Docosahexanoic Acid-Eicosapent anoic Acid Oral 120 mg-180 mg) 10/30/2020 Zinc Oral 09/14/2021 Reviewed and notable for fish oil, turmeric, ibuprofen Allergies Current Allergy List Allergy Name Severity Status Recording Date Dust mites Active 12/15/2023 Sulfa (Sulfonamide Antibiotics) Active 12/15/2023 Social History Alcohol, tobacco, drug use:?? non smoker, no EtOH Occupation: farm, does some elder care in the community Lives with in [place] Review of Systems Constitutional:?? Negative for weight loss, weight gain, fever, chills, fatigue. Respiratory:?? Negative for cough, shortness of breath, dyspnea. Cardiovascular:?? Negative for?? chest pain, palpitations, syncope. Gastrointestinal:?? Negative for nausea, vomiting, changes in bowel habits, abdominal pain, jaundice. Integument/Breast:?? Negative for other skin changes aside from those noted in the HPI related to??the breast. Hematologic/lymphatic: ??Negative for easy bruising, bleeding, history of bleeding disorders, lymphadenopathy. Psychiatric:?? Negative for depression or sleep disorders Endocrine:?? Negative for?? heat or cold intolerances Gynecologic:?? Negative for vaginal dryness, vaginal spotting,?? vaginal discharge. Physical Exam Vitals: Blood pressure: 134/86, Pulse: 74, Temperature: 97.8 F, Respirations: 18, O2 sat: 98%, Pain Scale: 0, Height: 66.5 in, Weight: 164 lb, BSA: 1.85, BMI: 26.07 kg/m2 Immunizations: Covid-19 vaccine (Freebeepay) (03/23/2022), Patient declined/rejected; Flu vaccine - Adult (10/30/2019), Patient declined/rejected; Flu vaccine - Adult (07/15/2020), Patient declined/rejected; Flu vaccine - Adult (11/14/2023), Patient declined/rejected Oxygen Sats 98% GENERAL: Well appearing female HEENT: NCAT, EOMI, sclera anicteric CHEST: breathing non labored and even RIGHT BREAST: no well defined masses or lesions, no skin changes, no nipple discharge, no nipple retraction LEFT BREAST: no well defined masses or lesions, no skin changes, no nipple discharge, no nipple retraction LYMPH: no axillary, supraclavicular, infraclavicular, or cervical lymphadenopathy bilaterally asidefrom palpable supraclavicular nodes right at the base of the clavicular head in the thoracic inlet ABDOMEN: soft, non-tender, non-distended, no masses BACK: no spinal tenderness EXTREMITIES: warm, well perfused, normal range of motion upper extremities, normal gait Imaging Reviewed as per HPI Pathology Reviewed as per HPI Assessment: 68 year old female with 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 Discussed optimal management with neoadjuvant chemoimmunotherapy, followed +/- surgery, followed byradiation therapy.?? She does not have a clip marking this area. I would think we would need one placed if we are going to treat her in a neoadjuvant fashion. I do not think surgery and radiation therapy alone would be a good option - high risk for systemic recurrence. I think options would be chemoimmunotherapy followed by surgery then radiation OR chemoimmunotherapy followed by radiation alone. Also with this location in the thoracic inlet, this may be better served with thoracic surgery. Regardless, she will be presented at our breast conference this coming Monday and I will call her in the afternoon per her request to discuss. She also has an appointment this coming Monday with .?? Plan: Regroup after conference presentation on Monday.?? She has follow up with Dr. Bashir on Monday. Questions answered of her and her daughter. 45 minutes spent on day of encounter in review of records, exam, discussion, counseling, coordination of care, orders, and documentation.?? Thank you for allowing me to see KIMBERLY ZHU in consult. Chayito Chung MD CC: Sheila Fowler MD (Referring) Dedra Timmons MD FAX (Referring) Benny Villegas MD Electronically signed by Chayito Chung MD 12/15/2023 16:16 CDT
--- OUTSIDE RECORDS SUMMARY | 2025-04-24 18:33 | XMS_ITS ---
Author Name Interface, [id number] lity Address [address] [place] [address] [address] [place] [address] [facility] Address [address] [facility] [address] [place] [address] Allergies and Adverse Reactions Plan Reason for Visit Encounters Immunizations Diagnostic Results Medications Problems Vital Signs
--- OUTSIDE RECORDS SUMMARY | 2025-04-24 18:33 | XMS_ITS ---
Author Name Interface, [id number] lity Address [address] [place] [address] [address] [place] [address] [facility] Address [address] [facility] [address] [place] [address] Allergies and Adverse Reactions Plan Reason for Visit Encounters Immunizations Diagnostic Results Medications Problems Vital Signs
--- OUTSIDE RECORDS SUMMARY | 2025-04-24 18:33 | XMS_ITS | Clinical Summary ---
Author Organization [facility] Address [address] [place] [address] Care Team Providers Care Automotive Heavy Mechanic Name Role Phone Elsewhere, Pcp Primary Care Provider Unavailabl e Source Comments Patient records contain information from all sites at [facility]. For routine questions regarding patient records, call [phone] during business hours, M-F 8:00 AM - 5:00 PM Central Time. Record requests for emergency care only can be directed to [phone] at any time.[facility] Allergies Active Allergy Reactions Criticality Noted Date [...] Incomplete 01/10/2024 Headache Unspecified 01/10/2024 Osteopenia 01/10/2024 Polyneuropathy In Diseases Classified Elsewhere 10/31/2023 Malignant Neoplasm Of Breast Lower Outer Quadrant Female Left 08/16/2019 Cancer Staging:Clinical stage from 02/01/2019:Stage IIB(cT2(2), cN0, cM0, G3, ER-, KY-, HER2-) - Signed by Benny Pizarro M.D. on 08/23/2019 Pathologic stage from 08/14/2019:No Stage Recommended(ypT1c, pN0(sn), cM0, G3, ER-, [place]-, HER2-) - Signed by Benny Pizarro M.D. on 08/23/2019 Clinical stage from 11/19/2023:Stage IIIC(rcT0, cN3c, cM0, G3, ER-, KY-, HER2-) - Signed by Anant Jones M.D. on 01/18/2024 Benign Neoplasm Colon 09/23/2009 Overview (01/10/2024): Colonoscopy 08/2009 polyp, repeat in 5 years Colonoscopy 11/2018 normal, repeat in 5 years Encounters Date Type Department Care Team Description 04/22/2025 Clinical Communication Department of Radiation Oncology in [address] [address] Benny Pizarro M.D. 02/17/2025 10:08 AM CDT - 02/17/2025 5:16 PM CDT Hospital Encounter Department of Radiation Oncology in [address] [address] Benny Pizarro M.D. Secondary Malignant Neoplasm Lymph Node (HCC) (Primary Dx); Malignant Neoplasm Of Breast Lower Outer Quadrant Female Left (HCC) 02/13/2025 Orders Only Department of Radiation Oncology in [address] [address] Abimbola Bui APRN, C.N.P., D.N.P. Malignant Neoplasm Of Breast Lower Outer Quadrant Female Left (HCC) (Primary Dx); Secondary Malignant Neoplasm Lymph Node (HCC) from Last 3 Months Immunizations Immunization Administration Dates Next Due HepA Adult 05/27/2014 [...] drink = 0.6 oz pur e alcohol) [facility] Utilities Answer Date Recorded In the past 12 months has th e [employer], gas, oil, or water [employer] threatened to shut off services in your [...] your living situation today? 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 Gender Identity Female 01/16/2024 10:31 PM CDT Sexual Orientation Straight 01/16/2024 10 :31 PM CDT Last Filed Vital Signs Vital Sign Reading Time Taken Comments Blood Pressure 109/73 02/17/2025 10:20 AM CDT Pulse 71 02/17/2025 10:20 AM CDT Temperature 36.6 C (97.8 F) 02/17/2025 10:20 AM CDT Respiratory Rate - - Oxygen Saturation - - Inhaled Oxygen Concentration - - Weight 63.3 kg (139 lb 8.8 oz) 02/17/2025 10:20 AM CDT Height 168.5 cm (5' 6.34) 01/10/2024 9:05 AM CD T Body Mass Index 22.29 01/10/2024 9:05 AM CDT Plan of Treatment Upcoming Encounters Date Type Department Care Team (Late st Contact Info) Description 04/25/2025 9:30 AM CDT Appointment Department of Radiology in [place], [place] [address] [place] [address] Milena Levine P.A.-C., M.S. [address] [place] [address] Discharge Disposition: Home or Self Care Health Maintenance Due Date Last Done Comments CT Colonography 1955 Cologuard 1955 Hepatitis C Screening 1955 COVID-19 Vaccine (#1) 1958 Pneumococcal vaccine (50+ years) (1 of 2 - PCV) 1972 Zoster Vaccines (1 of 2) 1972 RSV vaccine - (32-36 weeks) or 60+ years (1 - Risk 60-74 years 1-dose series) 2013 IPV Vaccines (2 of 3 - Adult catch-up series) 06/24/2014 05/27/2014 DTaP,Tdap,and Td Vaccines (2 - Td or Tdap) 04/05/2022 04/05/2012, 07/10/1996 Colonoscopy 12/12/2023 12/11/2018 Colorectal Cancer Surveillance 12/12/2023 Depression Screening (Annual PHQ-2) 08/28/2024 Fall Risk Screen (Annual) 08/28/2024 Mammogram 01/10/2025 01/11/2024, 01/28 (Performed elsewhere), 01/09/2023, Additional history exists Influenza Vaccine (#1) 2025 Fasting Glucose for Diabetes Screening 07/22/2027 07/22/2024, 10/31/2023, 10/29/2019, Additional history exists Bone Density Scan (Osteoporosis Screen) Discontinued 04/14/2020 HPV Vaccines Aged Out No longer eligi ble based on patient's age to complete this topic Medical Devices Implanted Type Area Dividend Deposit Voucher Clerk Device Identifier Shelf Expiration Date Model / Serial / Lot Hardware E.G. Pins/Screws/R ods Hardware e.g. pins/screws/ rods Left: Wrist Procedures Procedure Name Priority Date/Time Associated Diagnosis Comments BI BREAST DIAGNOSTIC BILATERAL WITH TOMOSYNTHESIS RAD - Routine (most inpatients and all outpatients) 01/11/2024 10:04 AM CDT Secondary Malignant Neoplasm Lymph Node Neck (HCC) Cancer Breast Personal History from Last 3 Months or Most Recently Relevant to Health Maintenance Results * BI Breast Diagnostic Bilateral with Tomosynthesis (01/11/2024 10:04 AM CDT) Anatomical Region Laterality Modality Breast, Breast Imaging RST L OS, Breast Imaging ARZ LOS, Breast Imaging FLA LOS Bilateral Mammography Impressions 01/11/2024 11:06 AM CDT No mammographic or sonographic findings of malignancy. RECOMMENDATION: Clinical Management Continue multidisciplinary management of the left supraclavicular carmelo recurrence. ASSESSMENT: BI-RADS: 1: Negative. Narrative 01/11/2024 11:06 AM CDT EXAM: BI BREAST DIAGNOSTIC BILATERAL WITH TOMOSYNTHESIS, BI ULTRASOUND BREAST FOCUSED LEFT INDICATION: History of left breast invasive ductal carcinoma status post neoadjuvant chemotherapy, lumpectomy and adjuvant radiation completed 2019. Recent left supraclavicular carmelo recurrence pending the pathology review. Request for diagnostic mammographic evaluation of both breasts and left breast palpables. COMPARISON: Prior exam(s) were available and reviewed for comparison. DENSITY: b. There are scattered areas of fibroglandular density. FINDINGS: Bilateral diagnostic full-field and additional spot magnification views of the left lumpectomy bed was obtained. Stable posttreatment changes in the slightly inferior retroareolar breast. No mammographic findings for malignancy. Targeted ultrasound of the 9:30 left breast, 5.5 cm from the nipple demonstrates a few ridges of fibroglandular tissue and corresponds to the palpable abnormality. No sonographic findings for malignancy. Procedure Note Sukhjinder Gonsalez M.D. - 01/11/2024 EXAM: BI BREAST DIAGNOSTIC BILATERAL WITH TOMOSYNTHESIS, BI ULTRASOUNDBREAST FOCUSED LEFT INDICATION: History of left breast invasive ductal carcinoma status postneoadjuvant chemotherapy, lumpectomy and adjuvant radiation [id number]. Recent left supraclavicular carmelo recurrence pending the pathologyreview. Request for diagnostic mammographic evaluation of both breasts and left breast palpables. COMPARISON: Prior exam(s) were available and reviewed for comparison. DENSITY: b. There are scattered areas of fibroglandular density. FINDINGS: Bilateral diagnostic full-field and additional spotmagnification views of the left lumpectomy bed was obtained. Stableposttreatment changes in the slightly inferior retroareolar breast. Nomammographic findings for malignancy. Targeted ultrasound of the 9:30 left breast, 5.5 cm from the nippledemonstrates a few ridges of fibroglandular tissue and corresponds to thepalpable abnormality. No sonographic findings for malignancy. IMPRESSION: No mammographic or sonographic findings of malignancy. RECOMMENDATION: Clinical Management Continue multidisciplinary management of the left supraclavicular nodalrecurrence. ASSESSMENT: BI-RADS: 1: Negative. Misty Prater M.D. IM BI PROCEDURES Final Result from Last 3 Months or Most Recently Relevant to Health Maintenance Insurance [facility] Care Teams Automotive Heavy Mechanic Relationship Specialty Start Date End Date Elsewhere, Pcp PCP - General Ear Pull Machine Operator 08/23/19
--- OUTSIDE RECORDS SUMMARY | 2025-04-24 18:33 | XMS_ITS ---
Author Name Interface, [id number] lity Address [address] [address] [facility] Address [address] [address] Allergies and Adverse Reactions Medication/Group Name Reaction [...] 12/15/2023 APPOINTMENT INTERNAL REFERRA L 60 MIN 12/01/2023 APPOINTMENT OV 20 MIN 11/27/2023 APPOINTMENT OUTSIDE TEST 5 M IN 11/24/2023 APPOINTMENT OUTSIDE TEST 5 M IN 11/23/[address] WHOLE BOD Y 30 MIN 11/14/2023 APPOINTMENT RECONSULT LAB 11/14/2023 APPOINTMENT NEW PT CONSULT 6 0 MIN 11/14/2023 APPOINTMENT RECONSULT NEW DX 11/14/2023 APPOINTMENT LAB 15 MIN 11/14/2023 APPOINTMENT LAB 15 MIN 01/25/2023 APPOINTMENT OV 30 MIN 01/19/2023 APPOINTMENT OUTSIDE TEST 5 M IN 03/23/2022 APPOINTMENT OV 30 MIN 03/16/2022 APPOINTMENT OV 30 MIN 09/14/2021 APPOINTMENT OV 30 MIN 09/02/2021 APPOINTMENT OV 30 MIN 07/21/2021 APPOINTMENT RC - 0123 RC - 0 123 RC 04/19/2021 APPOINTMENT RC - 0123 RC - 0 123 RC 10/30/2020 APPOINTMENT RC - 123 RC - 4M O 08/26/2020 APPOINTMENT RC - 0123 4 DEB H RC - 0123 4 MONTH RC 07/15/2020 APPOINTMENT RC - 0123 ARM/RC - MD ON VACATION 07/15/2020 APPOINTMENT RC - 0123 ARM/RC - MD ON VACATION 06/09/2020 APPOINTMENT ECHO - 0123 ECHO @ [facility] - CKIN @ 945 03/23/2020 APPOINTMENT RC - 0123 8 DEB H RC - 0123 8 MONTH RC 03/06/2020 APPOINTMENT PF - 0123 PORT F LUSH - 0123 PORT FLUSH 03/06/2020 APPOINTMENT SVF - 0123 RC - IN CLINIC APPT 03/06/2020 APPOINTMENT TMSVR - 0123 SVF - 0123 SVF 03/13/2020 LABORDER Port removal 07/15/2020 LABORDER Hepatic function panel 07/15/2020 LABORDER CBC w/ auto diff 01/02/2021 LABORDER Mammogram, scree k[facility] w/ 3D 03/23/2022 LABORDER Vitamin B12 pane l 01/11/2023 LABORDER Bone scan, total body 11/14/2023 LABORDER PD-L1 IHC, FDA p embrolizumab or biosimilar (22C3) panel 11/27/2023 LABORDER MRI brain w/ & w /o contrast 11/27/2023 LABORDER PET/CT scan, sku ll base/mid thigh 01/10/2024 LABORDER U/S breast, left 06/14/2024 LABORDER PET/CT scan, sku ll base/mid thigh 01/13/2025 LABORDER PET/CT scan, sku ll base/mid thigh Reason for Visit OV 20 MIN Encounters Date Name 03/06/2020 Dry mouth 03/06/2020 Headache (finding) 03/06/2020 Person counseled 03/06/2020 Polyneuropathy assoc iated with another disorder (disorder) 03/06/2020 Polyneuropathy assoc iated with another disorder (disorder) 03/06/2020 Primary malignant ne oplasm of female breast (disorder) 03/06/2020 Secondary malignancy of lymph nodes 03/06/2020 Uterine prolapse (di sorder) Immunizations Date Name Route Dose Instructions Refusal Reason Stat us Flu vaccine - Adult Patient declined/rejected Not Administered Flu vaccine - Adult Patient declined/rejected Not Administered Flu vaccine - Adult Patient declined/rejected Not Administered Flu vaccine - Adult Patient declined/rejected Not Administered Covid-19 vaccine (Pfizer) Patient declined/rejected Not Administered Diagnostic Results Date Type Test Units Lower Limit Upper Limit Result Flag Comments Status Ordered By Specimen Source Lab Address 06/19 [facility] other lab See molder machine tender d 07/15 CBC w/ auto diff WBC K/uL 3.0 8.9 5.0 FINAL Corinne [facility]enor On[facility] - [facility], [address] [place] [address] [address] [place] [phone] Phone: () - 07/15 CBC w/ auto diff HGB g/dL 11.3 15.2 12.8 FINAL Corinne villasenor Oncology [facility], [address] [place] [address] [address] [place] [id number] 0 Phone: () - 07/15 CBC w/ auto diff PLT K/uL 113.0 364.0 231 FINAL Corinne villasenor On[facility], [address] [place] [address] [address] [place] [id number] 0 Phone: () - 07/15 CBC w/ auto diff Anupam # (ANC) K/uL 1.6 6.6 3.1 FINAL Corinne villasenor On[facility], [address] [place] [address] [address] [place] [id number] 0 Phone: () - 07/15 CBC w/ auto diff Anupam % % 43.0 74.0 60.5 FINAL Corinne villasenor On[facility], [address] [place] [address] [address] [place] [id number] 0 Phone: () - 07/15 CBC w/ auto diff IG % % 0.0 0.5 0.0 FINAL Corinne villasenor Oncology [facility], [address] [place] [address] [address] [place] [id number] 0 Phone: () - 07/15 CBC w/ auto diff IG # K/uL 0.0 0.03 0.00 FINAL Corinne [facility]enor On[facility] - [place], [address] [place] [address] [address] [facility] [place] [id number] 0 Phone: () - 07/15 CBC w/ auto diff LY % % 14.0 41.0 25.8 FINAL Corinne [facility]enor [facility] - [place], [address] [facility] [place] [id number] 0 Phone: () - 07/15 CBC w/ auto diff MO % % 6.0 15.0 10.3 FINAL Cor[facility] - [place], [address] [place] [id number] 0 Phone: () - 07/15 CBC w/ auto diff EO % % 0.0 7.0 2.8 FINAL Cor[facility]ne [facility] - [place], [address] [facility] [place] [id number] 0 Phone: () - 07/15 CBC w/ auto diff BA % % 0.0 2.0 0.6 FINAL Corinne [facility]en[facility] - [place], [address] [place] [address] [address] [facility] [place] [id number] 0 Phone: () - 07/15 CBC w/ auto diff LY # K/uL 0.4 3.6 1.3 FINAL Cor[facility] - [place], [address] [facility] [place] [id number] 0 Phone: () - 07/15 CBC w/ auto diff MO # K/uL 0.2 1.3 0.5 FINAL Corinne [facility]en[facility] - [place], [address] [place] [address] [address] [place] [id number] 0 Phone: () - 07/15 CBC w/ auto diff EO # K/uL 0.0 0.6 0.1 FINAL Cor[facility] - [place], [address] [place] [id number] 0 Phone: () - 07/15 CBC w/ auto diff BA # K/uL 0.0 0.2 0.0 FINAL Cor[facility]ne [facility] - [place], [address] [place] [address] [address] [facility] [place] [id number] 0 Phone: () - 07/15 CBC w/ auto diff NRBC % #/100W BC 0.0 0.2 0.0 FINAL Cor[facility]ne [facility]en[facility] - [place], [address] [place] [address] [address] [place] [id number] 0 Phone: () - 07/15 CBC w/ auto diff RBC M/uL 3.9 5.1 4.46 FINAL Corinne villasenor [facility] - [place], [address] [place] [address] [address] [place] [id number] 0 Phone: () - 07/15 CBC w/ auto diff HCT % 35.0 48.0 39.1 FINAL Corinne villasenor [facility] - [place], [address] [place] [address] [address] [place] [id number] 0 Phone: () - 07/15 CBC w/ auto diff MCV fL 80.0 104.0 87.7 FINAL Corinne villasenor [facility] - [place] [facility], [address] [place] [address] [address] [place] [id number] 0 Phone: () - 07/15 CBC w/ auto diff MCH pg 26.0 35.0 28.7 FINAL Corinne villasenor [facility] - [place], [address] [place] [address] [address] [place] [id number] 0 Phone: () - 07/15 CBC w/ auto diff MCHC g/dL 30.0 35.0 32.7 FINAL Corinne [facility]asen[facility] - [place], [address] [place] [address] [address] [place] [id number] 0 Phone: () - 07/15 CBC w/ auto diff MPV fL 9.5 13.4 8.9 Low FINAL Corinne [facility] - [place], [address] [place] [address] [address] [place] [id number] 0 Phone: () - 07/15 CBC w/ auto diff RDW % 11.4 16.1 12.50 FINAL Corinne [facility] - [place], [address] [place] [address] [address] [place] [id number] 0 Phone: () - 07/15 Hepat ic funct ion panel Album in g/dL 3.2 5.2 4.6 FINAL Corinne villasenor [address] [id number] [phone] Phone: () - 07/15 Hepat ic funct ion panel Alkal ine phosp hatas e U/L 46.0 116.0 85 FINAL Corinne villasenor [address] [id number] 0 Phone: () - 07/15 Hepat ic funct ion panel ALT/S GPT U/L 7.0 40.0 20 FINAL Corinne villasenor [address] [id number] [phone] Phone: () - 07/15 Hepat ic funct ion panel AST/S GOT U/L 13.0 40.0 19 FINAL Corinne villasenor [address] [id number] 0 Phone: () - 07/15 Hepat ic funct ion panel Bilir ubin, direc t mg/dL 0.0 0.3 0.1 FINAL Corinne villasenor [address] [id number] 0 Phone: () - 07/15 Hepat ic funct ion panel Bilir ubin, total mg/dL 0.3 1.2 0.5 FINAL Corinne villasenor [address] [id number] [phone] Phone: () - 07/15 Hepat ic funct ion panel Total prote in g/dL 5.7 8.2 7.0 FINAL Corinne villasenor [address] [id number] 0 Phone: () - 03/23 Vitam in B12 panel Vitam in B12 pg/mL 230.0 1050.0 654 Test performed at [facility]. [address] [place] [address], [place] [address] [facility]AL [facility], [address] [place] [phone] Phone: () - 10/30 Misc other lab See molder machine tender d 05/15 Mis other lab See molder machine tender d 05/15 Mis other lab See molder machine tender d 07/22 Mis other lab See molder machine tender d 07/23 Mis other lab See molder machine tender d 08/06 [facility] other lab See molder machine tender d Medications Date Name Route Dose Frequency [...] Mebendazole Oral Chewable BID active Vit C,E-Zn-Coppe f-Dkmerd-Kpq maria d Oral 250 mg-90 mg-40 mg-1 [...] sleep 2018 active 06/17 Azelastine-F luticasone Nasal [place] 137 mcg-50 mcg/spray 1.0 SPRAY(S) PRN 2018 [...] counseled Active Vital Signs Date Type Value 03/06/2020 Pain Scale 0.00 07/15/2020 Pain Scale 0.00 07/15/2020 Intravascular Systolic 110 07/15/2020 Intravascular Diastolic 64 07/15/2020 Oxygen Saturation 97.00 07/15/2020 Respiratory Rate 18.00 07/15/2020 BMI 24.64 07/15/2020 Body Temperature 98.00 07/15/2020 BSA 1.80 07/15/2020 Height 66.50 07/15/2020 Weight 155.00 07/15/2020 Heart Beat 81.00 10/30/2020 Height 66.50 10/30/2020 Weight 162.00 10/30/2020 Pain Scale 0.00 10/30/2020 Intravascular Systolic 122 10/30/2020 Intravascular Diastolic 78 10/30/2020 Oxygen Saturation 98.00 10/30/2020 Respiratory Rate 18.00 10/30/2020 Heart Beat 66.00 10/30/2020 Body Temperature 98.00 10/30/2020 BMI 25.76 10/30/2020 BSA 1.84 09/14/2021 Pain Scale 0.00 09/14/2021 Respiratory Rate 14.00 09/14/2021 Weight 160.00 09/14/2021 Height 66.50 09/14/2021 BMI 25.44 09/14/2021 BSA 1.83 09/14/2021 Body Temperature 97.70 09/14/2021 Intravascular Systolic 110 09/14/2021 Intravascular Diastolic 60 09/14/2021 Heart Beat 90.00 09/14/2021 Oxygen Saturation 96.00 03/23/2022 Body Temperature 98.10 03/23/2022 Heart Beat 88.00 03/23/2022 Respiratory Rate 16.00 03/23/2022 Oxygen Saturation 98.00 03/23/2022 BSA 1.84 03/23/2022 Pain Scale 0.00 03/23/2022 Weight 162.00 03/23/2022 Height 66.50 03/23/2022 BMI 25.76 03/23/2022 Intravascular Systolic 126 03/23/2022 Intravascular Diastolic 70 01/25/2023 Pain Scale 2.00 01/25/2023 Height 66.50 11/14/2023 Body Temperature 98.20 11/14/2023 Heart Beat 77.00 11/14/2023 Respiratory Rate 16.00 11/14/2023 Oxygen Saturation 98.00 11/14/2023 BSA 1.85 11/14/2023 Pain Scale 3.00 11/14/2023 Weight 165.00 11/14/2023 Height 66.50 11/14/2023 BMI 26.23 11/14/2023 Intravascular Systolic 132 11/14/2023 Intravascular Diastolic 86 12/01/2023 Body Temperature 98.00 12/01/2023 Heart Beat 74.00 12/01/2023 Respiratory Rate 16.00 12/01/2023 Oxygen Saturation 99.00 12/01/2023 Intravascular Systolic 112 12/01/2023 Intravascular Diastolic 70 12/01/2023 Pain Scale 5.00 12/01/2023 Weight 165.00 12/01/2023 Height 66.50 12/01/2023 BMI 26.23 12/01/2023 BSA 1.85 12/15/2023 Body Temperature 97.80 12/15/2023 Heart Beat 74.00 12/15/2023 Respiratory Rate 18.00 12/15/2023 Oxygen Saturation 98.00 12/15/2023 Intravascular Systolic 134 12/15/2023 Intravascular Diastolic 86 12/15/2023 Pain Scale 0.00 12/15/2023 Weight 164.00 12/15/2023 Height 66.50 12/15/2023 BMI 26.07 12/15/2023 BSA 1.85 12/19/2023 Body Temperature 97.10 12/19/2023 Heart Beat 87.00 12/19/2023 Respiratory Rate 16.00 12/19/2023 Oxygen Saturation 98.00 12/19/2023 BSA 1.85 12/19/2023 Pain Scale 4.00 12/19/2023 Weight 165.20 12/19/2023 Height 66.50 12/19/2023 BMI 26.26 12/19/2023 Intravascular Systolic 124 12/19/2023 Intravascular Diastolic 76 01/01/2024 BMI 26.04 01/01/2024 BSA 1.85 01/01/2024 Height 66.50 01/01/2024 Weight 163.80 01/01/2024 Pain Scale 0.00 01/01/2024 Oxygen Saturation 96.00 01/01/2024 Respiratory Rate 16.00 01/01/2024 Heart Beat 78.00 01/01/2024 Body Temperature 97.30 01/01/2024 Intravascular Systolic 126 01/01/2024 Intravascular Diastolic 78 01/30/2024 BSA 1.82 01/30/2024 BMI 25.09 01/30/2024 Height 66.50 01/30/2024 Weight 157.80 01/30/2024 Body Temperature 97.50 01/30/2024 Intravascular Systolic 124 01/30/2024 Intravascular Diastolic 78 01/30/2024 Oxygen Saturation 96.00 01/30/2024 Respiratory Rate 16.00 01/30/2024 Heart Beat 71.00 07/10/2024 Heart Beat 93.00 07/10/2024 Body Temperature 97.60 07/10/2024 Respiratory Rate 16.00 07/10/2024 Oxygen Saturation 99.00 07/10/2024 Intravascular Systolic 126 07/10/2024 Intravascular Diastolic 88 07/10/2024 Pain Scale 0.00 07/10/2024 Weight 151.60 07/10/2024 Height 66.50 07/10/2024 BMI 24.10 07/10/2024 BSA 1.79 11/29/2024 Heart Beat 74.00 11/29/2024 Pain Scale 0.00 11/29/2024 Weight 145.60 11/29/2024 Height 66.50 11/29/2024 BMI 23.15 11/29/2024 BSA 1.76 11/29/2024 Body Temperature 98.00 11/29/2024 Intravascular Systolic 122 11/29/2024 Intravascular Diastolic 72 11/29/2024 Respiratory Rate 16.00 11/29/2024 Oxygen Saturation 100.00 01/17/2025 Body Temperature 97.80 01/17/2025 Heart Beat 74.00 01/17/2025 Respiratory Rate 16.00 01/17/2025 Oxygen Saturation 99.00 01/17/2025 Intravascular Systolic 120 01/17/2025 Intravascular Diastolic 82 01/17/2025 Height 66.50
--- OUTSIDE RECORDS SUMMARY | 2025-04-24 18:33 | XMS_ITS ---
Author Organization [facility] Address [address] [place] [address] Care Team Providers Care Government Guard Name Role Phone Elsewhere, Pcp Primary Care Provider Unavailabl e Active Problems * This document contains information received from the source organization and may not represent a complete record from that organization. Problem Noted Date Diagnosed Date Secondary Malignant Neoplasm Lymph Node 01/10/20 Prolapse Uterovaginal Incomplete 01/10/2024 Headache Unspecified 01/10/2024 Osteopenia 01/10/2024 Polyneuropathy In Diseases Classified Elsewhere 10/31/2023 Malignant Neoplasm Of Breast Lower Outer Quadrant Female Left 08/16/2019 Cancer Staging:Clinical stage from 02/01/2019:Stage IIB(cT2(2), cN0, cM0, G3, ER-, CA-, HER2-) - Signed by Benny Pizarro M.D. on 08/23/2019 Pathologic stage from 08/14/2019:No Stage Recommended(ypT1c, pN0(sn), cM0, G3, ER-, CA-, HER2-) - Signed by Benny Pizarro M.D. on 08/23/2019 Clinical stage from 11/19/2023:Stage IIIC(rcT0, cN3c, cM0, G3, ER-, CA-, HER2-) - Signed by Anant Jones M.D. on 01/18/2024 Benign Neoplasm Colon 09/23/2009 Overview (01/10/2024): Colonoscopy 08/2009 polyp, repeat in 5 years Colonoscopy 11/2018 normal, repeat in 5 years Current Treatment and Therapy Plans No current plan information found. Past Treatment and Therapy Plans No past plan information found. Radiation Treatments (No Episode) * Course 1x L breast 09/18/2019 - 10/14/2019 Treatment Period Energy Fraction Dose Fractions Total Dose Plans Planned F16 LbrstB 10/09/2019 - 10/14/2019 250 cGy 1,000 cGy F1 Lbreast 09/18/2019 - 10/08/2019 267 cGy 4,005 cGy Reference Points Delivered [id number] 09/18/2019 - 10/14/2019 5,005 cGy
--- OUTSIDE RECORDS SUMMARY | 2025-04-24 18:33 | XMS_ITS ---
Author Name Interface, [id number] lity Address [address] [place] [address] [address] [place] [address] [facility] [place] [facility] Address [address] [place] [address] Allergies and Adverse Reactions Plan Reason for Visit Encounters Immunizations Diagnostic Results Medications Problems Vital Signs Notes Section
--- OUTSIDE RECORDS SUMMARY | 2025-04-24 18:33 | XMS_ITS ---
Author Name Interface, [id number] lity Address [address] [place] [address] [address] [place] [address] [facility] Oncology Address [address] [facility] [address] [place] [address] Allergies and Adverse Reactions Plan Reason for Visit Encounters Immunizations Diagnostic Results Medications Problems Vital Signs Notes Section
--- OUTSIDE RECORDS SUMMARY | 2025-04-24 18:34 | XMS_ITS | Patient Health Record ---
Author Organization [facility] [place] Address [address] Michael [facility] [address] Care Team Providers Care Electric Serviceman Name Role Phone Charles Bell Primary Care Provider [phone] Allergies Allergen (clinical drug ingredient) Drug/Non Drug Allergy documented on EMR Reaction Allergy Type Onset Date Status Substance with sulfonamide structure and antibacterial mechanism of action (substance) sulfa (uncoded) Unknown Allergy Active Reason For Referral No Information Medications Medication SIG (Take, Route, Frequency, Duration) Notes Start Date End Date Status Azelastine HCl 137 MCG/SPRAY 1 puff in each nostril Nasally Twice a day; Duration: 30 day(s) PRN-occasionally for allergies Active Fish Oil 1200 MG 1 capsule Orally Once a day; Duration: 30 day(s) Active Multivitamin daily Active Aspir-Low 81 MG 1 tablet Orally Once a day; Duration: 30 day(s) prn Active Zinc Active Ambien [...] disease ? No Section Notes: lives in [place] primary doctor: Mirta Villegas MD, [place] Allabram works as an oxyacetylene welder now youngest child is 23 homeschooled all her kids lives in [place] primary doctor: Mirta Villegas MD, [place] Allina works as an oxyacetylene welder now youngest child is 23 homeschooled all her kids [place] primary doctor: Mirta Villegas MD, [place] Allina works as an oxyacetylene welder now youngest child is 23 homeschooled all her kids lives in [place] primary doctor: Mirta Villegas MD, [place] Allina works as an oxyacetylene welder now youngest child is 23 homeschooled all her kids lives in [place] primary doctor: Mirta Villegas MD, [place] Allabram works as an oxyacetylene welder now youngest child is 23 homeschooled all her kids lives in [place] primary doctor: Mirta Villegas MD, [place] Allina works as an oxyacetylene welder now youngest child is 23 homeschooled all her kids lives in [place] primary doctor: Mirta Villegas MD, [place] Allabram works as an oxyacetylene welder now youngest child is 23 homeschooled all her kids lives in [place] primary doctor: Mirta Villegas MD, [place] Allina works as an oxyacetylene welder now youngest child is 23 homeschooled all her kids lives in [place] primary doctor: Mirta Villegas MD, [place] Allabram works as an oxyacetylene welder now youngest child is 23 homeschooled all her kids lives in [place] primary doctor: Mirta Villegas MD, [place] Allina works as an oxyacetylene welder now youngest child is 23 homeschooled all her kids lives in [place] primary doctor: Mirta Villegas MD, [place] Allina works as an oxyacetylene welder now youngest child is 23 homeschooled all her kids lives in [place] primary doctor: Mirta Villegas MD, [place] Allabram works as an oxyacetylene welder now youngest child is 23 homeschooled all her kids lives in [place] primary doctor: Mirta Villegas MD, [place] Allabram works as an oxyacetylene welder now youngest child is 23 homeschooled all her kids lives in [place] primary doctor: Mirta Villegas MD, [place] Allina works as an oxyacetylene welder now youngest child is 23 homeschooled all her kids lives in [place] primary doctor: Mirta Villegas MD, [place] Allina works as an oxyacetylene welder now youngest child is 23 homeschooled all her kids lives in [place] primary doctor: Mirta Villegas MD, [place] Allina works as an oxyacetylene welder now youngest child is 23 homeschooled all her kids lives in [place] primary doctor: Mirta Villegas MD, [place] Allina works as an oxyacetylene welder now youngest child is 23 homeschooled all her kids lives in [place] primary doctor: Mirta Villegas MD, [place] Allabram works as an oxyacetylene welder now youngest child is 23 homeschooled all her kids lives in [place] primary doctor: Mirta Villegas MD, [place] Allina works as an oxyacetylene welder now youngest child is 23 homeschooled all her kids lives in [place] primary doctor: Mirta Villegas MD, [place] Allina works as an oxyacetylene welder now youngest child is 23 homeschooled all her kids lives in [place] primary doctor: Mirta Villegas MD, [place] Allina works as an oxyacetylene welder now youngest child is 23 homeschooled all her kids lives in [place] primary doctor: Mirta Villegas MD, [place] Allabram works as an oxyacetylene welder now youngest child is 23 homeschooled all her kids lives in [place] primary doctor: Mirta Villegas MD, [place] Allina works as an oxyacetylene welder now youngest child is 23 homeschooled all her kids lives in [place] primary doctor: Mirta Villegas MD, [place] Allina works as an oxyacetylene welder now youngest child is 23 homeschooled all her kids lives in [place] primary doctor: Mirta Villegas MD, [place] Allabram works as an oxyacetylene welder now youngest child is 23 homeschooled all her kids lives in [place] primary doctor: Mirta Villegas MD, [place] Allabram works as an oxyacetylene welder now youngest child is 23 homeschooled all her kids lives in [place] primary doctor: Mirta Villegas MD, [place] Ray works as an oxyacetylene welder now youngest child is 23 homeschooled all her kids lives in [place] primary doctor: Mirta Villegas MD, [place] Ray works as an oxyacetylene welder now youngest child is 23 homeschooled all her kids lives in [place] primary doctor: Mirta Villegas MD, [place] Ray works as an oxyacetylene welder now youngest child is 23 homeschooled all her kids lives in [place] primary doctor: Mirta Villegas MD, [place] Ray works as an oxyacetylene welder now youngest child is 23 homeschooled all her kids Problems Problem Type SNOMED Code ICD Code Onset Dates Problem Status W/U Status Risk Notes Problem SI - Stress incontinence (74422508) Stress incontinence (female) (male) (N39.3) Active confirmed Problem Urge incontinence of urine (87145459) Urge incontinence (N39.41) Active confirmed Problem Midline cystocele (280998352) Cystocele, midline (N81.11) Active confirmed Problem Herniation of rectum into vagina (018379633) Rectocele (N81.6) Active confirmed Problem Incomplete passage of stool (922346388) Incomplete defecation (R15.0) Active confirmed Problem 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 confirmed Problem Urge incontinence of urine (36383799) Urinary incontinence, urge (N39.41) Active confirmed Problem Atrophic vaginitis (89043840) Post-menopausal atrophic vaginitis (N95.2) Active confirmed Problem Fitting of pessary (procedure) (56554889) Encounter for fitting and adjustment of pessary (Z46.89) Active confirmed Encounters Encounter Location Date Provider Diagnosis [facility] [address] [place], [place] [id number] 07/24/2024 Charles Bell Plan Of Treatment No Information Insurance Providers Payer Name Payer Address Payer Phone Subscriber Number Group Number Insured Name Patient Relationship to Insured Coverage Start Date Coverage End Date [employer] 2021 (Client bill) [address] [place], [place] [id number] Deana Gauthier Self - patient is [...]
--- OUTSIDE RECORDS SUMMARY | 2025-04-24 18:34 | XMS_ITS ---
Author Name Interface, [id number] lity Address [address] [place] [address] [address] [place] [address] [facility] Oncology Address [address] [facility] [address] [place] [address] Allergies and Adverse Reactions Plan Reason for Visit Encounters Immunizations Diagnostic Results Medications Problems Vital Signs
--- OUTSIDE RECORDS SUMMARY | 2025-04-24 18:34 | XMS_ITS | CCD ---
Author Name Interface, [id number] lity Address [address] [place] [address] [address] [place] [address] [facility] Oncology Address [address] [place] [address] Care Team Providers Care Pilot Captain Name Role Phone Mckay ENRIQUE, Amparo Diaz Unavailable Allergies and Adverse Reactions Care Plan Reason for Visit Encounters Functional Status Immunizations Diagnostic Results Medications Problems Procedures Social History Visits Vital Signs Notes Section
[2025-04-24 18:41] VITALS: BP 116/75; PULSE 76; RESP 16; TEMP 36.7; O2SAT 99; BMI 22.3
--- NOTE | 2025-04-24 19:19 | CRLHL7_ITS ---
For Patients: As a result of the Century Cures Act, medical imaging exams and procedure reports are released immediately into your electronic medical record. You may view this report before your referring provider. If you have questions, please contact your health care provider. INDICATION: Left shoulder weak, left shoulder weakness TECHNIQUE: Shoulder radiograph 3 views left COMPARISON: None FINDINGS: Bone: No acute fractures or aggressive bone lesions are identified. Moderate diffuse osteopenia is noted. Joint: The glenohumeral joint is unremarkable. The acromioclavicular joint has mild osteoarthritis. Soft tissue: Left axillary dissection clips are noted. The visualized hemithorax is unremarkable in appearance. No radiopaque foreign bodies are seen. IMPRESSION: 1. No acute osseous injuries or abnormalities are noted. Dictated by: Pro Alston MD @ 04/24/2025 20:18:10 (Electronically Signed)
--- NOTE | 2025-04-24 19:40 | ED.GENADULT ---
HPI - General Adult General Date Seen: 04/24/25 Chief complaint: Extremity Pain/Injury, Upper Stated complaint: L shoulder weak Time Seen by Provider: 04/24/25 18:54 Source: patient Mode of arrival: ambulatory Limitations: no limitations History of Present Illness HPI narrative: Patient is a 69-year-old female presenting to the emergency department for left shoulder weakness. She states for the past few weeks she has been having gradually worsening shoulder weakness. She will feel like with a clicking sound in the back of her shoulder and she cannot move it up past about 60?. She denies issues with like this before. Does states she was able to we had some cucumbers last week but that was mostly keeping the arm below shoulder level. Since then she states the weakness has been worse. No associated pain with it. Is told she will likely need an MRI of her shoulder so came to the emergency department. She was concerned she could have some cancer spreading to her shoulder. Did have a previous PET scan which she states she was told she had some arthritis of the shoulder. Also states for the past 8 months she has been taking 60 mg daily via rim acting due to recommendations from other people who are not her doctors. Denies chest pain, fevers, chills, shortness of breath, weakness, numbness. 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 Related Data Home Medications ?Medication ?Instructions ?Recorded ?Confirmed ivermectin 6 mg tablet 60 mg PO 04/24/25 Allergies Allergy/AdvReac Type Severity Reaction Status Date / Time Sulfa (Sulfonamide Allergy Intermediate Verified 07/23/24 14:04 Antibiotics) goldenrod Allergy Unknown Uncoded 04/24/25 18:44 Review of Systems Status of ROS: Reports: 10 or more systems reviewed and unremarkable except as noted in History and below PFSH [facility] Social History Smoking Status: Never smoker How often do you have a drink containing alcohol: never AUDIT-C Alcohol total score: 0 Non-prescribed substance use: denies use Exam Narrative: Exam Narrative: Const: Well-nourished, Well-developed, in no distress Eyes: PERRL, no conjunctival injection, and symmetrical lids HENT: Atraumatic external nose and ears. Moist mucous membranes. Neck: Symmetric, trachea midline, No thyromegaly. CVS: RRR, No murmurs or gallops. Peripheral pulses 2+ and equal in all extremities RESP: Unlabored respiratory effort. Clear to auscultation bilaterally. GI: Nontender/Nondistended, No rebound or guarding. MSK:Extremities w/o deformity, decreased active range of motion to the left shoulder but normal passive range of motion. Skin: Warm, Dry. No rashes or lesions. Neuro: Normal Muscle tone, Cranial nerves 2-12 grossly intact, normal [id number], normal [id number]-rp-pujx, normal gait, normal strength 5/5 upper lower extremities bilaterally other than weakness of the left shoulder and raising above 60?, normal sensation upper and lower extremities bilaterally other than her chronic lower leg neuropathy. Normal sensation above the knees bilaterally, normal rapid alternating movements. Psych: Awake, Alert, & Oriented x3. Appropriate mood and affect. Const: Vital Signs, click to edit/add: Vital Signs - 24 hr 04/24/25 18:41 Temperature 98.1 F Pulse Rate [Pulse Oximeter] 76 Respiratory Rate 16 Blood Pressure [Ri ght Upper Arm] 116/75 Pulse Oximetry 99 Oxygen Delivery Me thod Room Air Course Vital Signs Vital signs: Initial Vital Signs Temperature 98.1 F 04/24/25 18:41 Temperature Source Temporal Artery Scan 04/24/25 18:41 Pulse Rate 76 04/24/25 18:41 Respiratory Rate 16 04/24/25 18:41 Blood Pressure 116/75 04/24/25 18:41 Blood Pressure Mean 88 04/24/25 18:41 Blood Pressure Position Sitting 04/24/25 18:41 Pulse Oximetry 99 04/24/25 18:41 Oxygen Delivery Method Room Air 04/24/25 18:41 Vital Signs Temperature 98.1 F 04/24/25 18:41 Pulse Rate 76 04/24/25 18:41 Respiratory Rate 16 04/24/25 18:41 Blood Pressure 116/75 04/24/25 18:41 Pulse Oximetry 99 04/24/25 18:41 Oxygen Delivery Method Room Air 04/24/25 18:41 Temperature 98.1 F 04/24/25 18:41 Pulse Rate 76 04/24/25 18:41 Respiratory Rate 16 04/24/25 18:41 Blood Pressure 116/75 04/24/25 18:41 Pulse Oximetry 99 04/24/25 18:41 Oxygen Delivery Method Room Air 04/24/25 18:41 Medical Decision Making MDM Narrative Medical decision making narrative: Patient is a 69-year-old female presenting for left shoulder weakness. This is specified to just the shoulder when she tries to raise it above 45-60 degrees. This is likely an issue with the deltoid. This seems unlikely to be a stroke as been progressive over several weeks. Do not believe head imaging is necessary. Will though order x-ray to look for possible arthritis, calcifications, lytic lesions. Due to the amount of ivermectin she has been taking we did talk to poison Control who recommends Neuro exam and LFTs. Her neuro exam is normal other than the left shoulder weakness and the chronic peripheral neuropathy in the lower legs. LFTs ordered. X-ray showed no acute concerning abnormalities as reviewed by myself and radiology. Liver panel shows slightly elevated AST and ALT but this appears consistent with her previous lab work. At this time patient is safe for discharge and she is agreeable to this plan. Lab Data Labs: Lab Results 04/24/25 Range/Units 19:50 Total Bilirubin < 0.1 L (0.1-1.5) mg/dL Direct Bilirubin 0.0 (0.0-0.5) mg/dL AST 46 H (12-35) U/L ALT 51 H (4-35) U/L Alkaline Phosphatase 100 (40-150) U/L Total Protein 6.8 (6.0-8.3) g/dL Albumin 4.0 (3.3-5.0) g/dL Imaging Data Left shoulder x-ray: Attestation: I have reviewed the pertinent imaging results. Radiologist's impression: 1. No acute osseous injuries or abnormalities are noted. Dictated by: Pro Alston MD @ 04/24/2025 20:18:10 Discharge Plan Discharge Clinical Impression: Weakness of left shoulder Patient Disposition: Home, Self-Care Condition: Stable Additional Instructions: This shoulder weakness could be related to the ivermectin use. I highly recommend speaking to your doctor about the ivermectin you are taking. Return to emergency department for new or worsening symptoms Prescriptions: No Action ivermectin 6 mg tablet 60 mg PO Follow Up/Referrals: Mirta Villegas MD [Primary Care Provider, Family Practice] Stand Alone Forms: [employer] Info Instructions
--- OUTSIDE RECORDS SUMMARY | 2025-04-24 19:49 | XMS_ITS ---
Author Name Interface, [id number] lity Address [address] [facility] [address] [address] [facility] Oncology Address [address] [facility] [address] [address] Allergies and Adverse Reactions Medication/Group Name Reaction [...] Ordered By Specimen Source Lab Address 06/19 [facility] other lab See farmworker cranberry d 07/15 CBC w/ auto diff WBC K/uL 3.0 8.9 5.0 FINAL Corinne villasenor Oncology - [facility], [address] [place] [address] [address] [place] [id number] 0 Phone: () - 07/15 CBC w/ auto diff HGB g/dL 11.3 15.2 12.8 FINAL Corinne villasenor Oncology [facility], [address] [place] [address] [address] [place] [id number] 0 Phone: () - 07/15 CBC w/ auto diff PLT K/uL 113.0 364.0 231 FINAL Corinne villasenor Oncology [facility], [address] [place] [address] [address] [place] [id number] 0 Phone: () - 07/15 CBC w/ auto diff Anupam # (ANC) K/uL 1.6 6.6 3.1 FINAL Corinne villasenor Oncology [facility], [address] [place] [address] [address] [place] [id number] 0 Phone: () - 07/15 CBC w/ auto diff Anupam % % 43.0 74.0 60.5 FINAL Corinne villasenor Oncology [facility], [address] [place] [address] [address] [place] [id number] 0 Phone: () - 07/15 CBC w/ auto diff IG % % 0.0 0.5 0.0 FINAL Corinne villasenor Oncology [facility], [address] [place] [address] [address] [place] [id number] 0 Phone: () - 07/15 CBC w/ auto diff IG # K/uL 0.0 0.03 0.00 FINAL Corinne villasenor Oncology - [place], [address] [place] [address] [address] [facility] [place] [id number] 0 Phone: () - 07/15 CBC w/ auto diff LY % % 14.0 41.0 25.8 FINAL Corinne villasenor Oncology - [place], [address] [facility] [place] [id number] 0 Phone: () - 07/15 CBC w/ auto diff MO % % 6.0 15.0 10.3 FINAL Corinne villasenor Oncology - [place], [address] [place] [id number] 0 Phone: () - 07/15 CBC w/ auto diff EO % % 0.0 7.0 2.8 FINAL Corinne villasenor Oncology - [place], [address] [facility] [place] [id number] 0 Phone: () - 07/15 CBC w/ auto diff BA % % 0.0 2.0 0.6 FINAL Corinne villasenor Oncology - [place], [address] [place] [address] [address] [facility] [place] [id number] 0 Phone: () - 07/15 CBC w/ auto diff LY # K/uL 0.4 3.6 1.3 FINAL Corinne villasenor Oncology - [place], [address] [facility] [place] [id number] 0 Phone: () - 07/15 CBC w/ auto diff MO # K/uL 0.2 1.3 0.5 FINAL Corinne villasenor Oncology - [place], [address] [place] [address] [address] [place] [id number] 0 Phone: () - 07/15 CBC w/ auto diff EO # K/uL 0.0 0.6 0.1 FINAL Corinne villasenor Oncology - [place], [address] [place] [id number] 0 Phone: () - 07/15 CBC w/ auto diff BA # K/uL 0.0 0.2 0.0 FINAL Corinne villasenor Oncology - [place], [address] [place] [address] [address] [facility] [place] [id number] 0 Phone: () - 07/15 CBC w/ auto diff NRBC % #/100W BC 0.0 0.2 0.0 FINAL Corinne villasenor Oncology - [place], [address] [place] [address] [address] [place] [id number] 0 Phone: () - 07/15 CBC w/ auto diff RBC M/uL 3.9 5.1 4.46 FINAL Corinne villasenor Oncology - [place], [address] [place] [address] [address] [place] [id number] 0 Phone: () - 07/15 CBC w/ auto diff HCT % 35.0 48.0 39.1 FINAL Corinne villasenor Oncology - [place], [address] [place] [address] [address] [place] [id number] 0 Phone: () - 07/15 CBC w/ auto diff MCV fL 80.0 104.0 87.7 FINAL Corinne villasenor Oncology - [place] [facility], [address] [place] [address] [address] [place] [id number] 0 Phone: () - 07/15 CBC w/ auto diff MCH pg 26.0 35.0 28.7 FINAL Corinne villasenor Oncology - [place], [address] [place] [address] [address] [place] [id number] 0 Phone: () - 07/15 CBC w/ auto diff MCHC g/dL 30.0 35.0 32.7 FINAL Corinne villasenor Oncology - [place], [address] [place] [address] [address] [place] [id number] 0 Phone: () - 07/15 CBC w/ auto diff MPV fL 9.5 13.4 8.9 Low FINAL Corinne villasenor Oncology - [place], [address] [place] [address] [address] [place] [id number] 0 Phone: () - 07/15 CBC w/ auto diff RDW % 11.4 16.1 12.50 FINAL Croinne villasenor Oncology - [place], [address] [place] [address] [address] [place] [id number] 0 Phone: () - 07/15 Hepat ic funct ion panel Album in g/dL 3.2 5.2 4.6 FINAL Corinne villasenor [address] [phone] 0 Phone: () - 07/15 Hepat ic funct ion panel Alkal ine phosp hatas e U/L 46.0 116.0 85 FINAL Corinne villasenor [address] [id number] 0 Phone: () - 07/15 Hepat ic funct ion panel ALT/S GPT U/L 7.0 40.0 20 FINAL Corinne villasenor [address] [id number] 0 Phone: () - 07/15 Hepat ic funct ion panel AST/S GOT U/L 13.0 40.0 19 FINAL Corinne villasenor [address] [id number] 0 Phone: () - 07/15 Hepat ic funct ion panel Bilir ubin, direc t mg/dL 0.0 0.3 0.1 FINAL Corinne villasenor [address] [id number] 0 Phone: () - 07/15 Hepat ic funct ion panel Bilir ubin, total mg/dL 0.3 1.2 0.5 FINAL Corinne villasenor [address] [id number] 0 Phone: () - 07/15 Hepat ic funct ion panel Total prote in g/dL 5.7 8.2 7.0 FINAL Corinne villasenor [address] [id number] 0 Phone: () - 03/23 Vitam in B12 panel Vitam in B12 pg/mL 230.0 1050.0 654 Test performed at [facility]. [address] [place] [address], [place] [address] [facility]AL [facility] [address] [facility] [address] [place] [id number] 0 Phone: () - 10/30 Misc other lab See farmworker cranberry d 05/15 Mis other lab See farmworker cranberry d 05/15 Misc other lab See farmworker cranberry d 07/22 Mis other lab See farmworker cranberry d 07/23 Mis other lab See farmworker cranberry d 08/06 [facility] other lab See farmworker cranberry d Medications Date Name Route Dose Frequency Instructions Start Date End Date Status Mebendazole Oral Chewable BID active Magnesium Oxide Oral prn active Ivermectin Oral QD active Miscellaneou s Drug BID lactoferin active Vit C,E-Zn-Coppe k-Yzeqve-Wxg maria d Oral 250 mg-90 mg-40 mg-1 mg active Vitamin D3-Vitamin K2 (MK4) Oral 1,000 unit-100 mcg orally 1.0 daily active Ascorbic Acid Oral po 1.0 tablet daily active Docosahexano ic Acid-Eicosap entanoic Acid Oral 120 mg-180 mg PO 1.0 capsule BID active Zinc Oral active Turmeric (Curcumin) Oral QD active 07/08 [...] only upon physician approval. 2018 active 06/17 Ibuprofen Oral PO 1.0 TABLET(S ) Q8H PRN pain 2018 active 06/17 Zolpidem Oral ER Tab PO 1.0 TABLET(S ) QHS PRN sleep 2018 active 06/17 Azelastine-F luticasone Nasal [place] 137 mcg-50 mcg/spray 1.0 SPRAY(S) PRN 2018 active 06/17 Diphenhydram ine IV intravenous [...]
--- OUTSIDE RECORDS SUMMARY | 2025-04-24 19:50 | XMS_ITS ---
Author Name Interface, [id number] lity Address [address] [place] [address] [address] [place] [address] [facility] Oncology Address [address] [facility] [address] [place] [address] Allergies and Adverse Reactions Plan Reason for Visit Encounters Immunizations Diagnostic Results Medications Problems Vital Signs Notes Section
--- OUTSIDE RECORDS SUMMARY | 2025-04-24 19:51 | XMS_ITS ---
Author Name Interface, [id number] lity Address [address] [place] [address] [address] [place] [address] [facility] Oncology Address [address] [facility] [address] [place] [address] Allergies and Adverse Reactions Plan Reason for Visit Encounters Immunizations Diagnostic Results Medications Problems Vital Signs Notes Section
--- OUTSIDE RECORDS SUMMARY | 2025-04-24 19:52 | XMS_ITS ---
Author Name Interface, [id number] lity Address [address] [facility] [address] [address] [facility] Address [address] 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) 07/15/2020 Primary malignant ne oplasm of female breast (disorder) 07/15/2020 Secondary malignancy of lymph nodes Immunizations Date Name Route Dose Instructions Refusal [...] Status Ordered By Specimen Source Lab Address 07/15 Hepat ic funct ion panel Album in g/dL 3.2 5.2 4.6 FINAL Corinne Washburn [facility] a [address] [phone] [phone] Phone: () - 07/15 Hepat ic funct ion panel Alkal ine phosp hatas e U/L 46.0 116.0 85 FINAL Corinne villasenor [address] [id number] [phone] Phone: () - 07/15 Hepat ic funct ion panel ALT/S GPT U/L 7.0 40.0 20 FINAL Corinne villasenor [address] [id number] [phone] Phone: () - 07/15 Hepat ic funct ion panel AST/S GOT U/L 13.0 40.0 19 FINAL Corinne villasenor [address] [id number] 0 Phone: () - 07/15 Hepat ic funct ion panel Bilir ubin, direc t mg/dL 0.0 0.3 0.1 FINAL Corinne villasenor [address] [id number] [phone] Phone: () - 07/15 Hepat ic funct ion panel Bilir ubin, total mg/dL 0.3 1.2 0.5 FINAL Corinne villasenor [address] [id number] [phone] Phone: () - 07/15 Hepat ic funct ion panel Total prote in g/dL 5.7 8.2 7.0 FINAL Corinne villasenor [address] [id number] [phone] Phone: () - 07/15 CBC w/ auto diff WBC K/uL 3.0 8.9 5.0 FINAL Corinne villasenor [facility], [address] [place] [address] [address] [facility] [place] [phone] 0 Phone: () - 07/15 CBC w/ auto diff HGB g/dL 11.3 15.2 12.8 FINAL Corinne villasenor [facility], [address] [facility] [place] [phone] 0 Phone: () - 07/15 CBC w/ auto diff PLT K/uL 113.0 364.0 231 FINAL Corinne villasenor [facility] [place], [address] [place] [address] [address] [place] [id number] 0 Phone: () - 07/15 CBC w/ auto diff Anupam # (ANC) K/uL 1.6 6.6 3.1 FINAL Corinne villasenor [facility] [place], [address] [place] [address] [address] [place] [id number] 0 Phone: () - 07/15 CBC w/ auto diff Anupam % % 43.0 74.0 60.5 FINAL Corinne villasenor [facility] [place], [address] [place] [address] [address] [place] [id number] 0 Phone: () - 07/15 CBC w/ auto diff IG % % 0.0 0.5 0.0 FINAL Corinne villasenor [facility] [place], [address] [place] [address] [address] [place] [id number] 0 Phone: () - 07/15 CBC w/ auto diff IG # K/uL 0.0 0.03 0.00 FINAL Corinne villasenor [facility] [place], [address] [place] [address] [address] [place] [id number] Phone: () - 07/15 CBC w/ auto diff LY % % 14.0 41.0 25.8 FINAL Corinne villasenor [facility] [place], [address] [place] [address] [address] [place] [id number] 0 Phone: () - 07/15 CBC w/ auto diff MO % % 6.0 15.0 10.3 FINAL Corinne villasenor [facility] [place], [address] [place] [address] [address] [place] [id number] 0 Phone: () - 07/15 CBC w/ auto diff EO % % 0.0 7.0 2.8 FINAL Corinne villasenor [facility] [place], [address] [place] [address] [address] [place] [id number] 0 Phone: () - 07/15 CBC w/ auto diff BA % % 0.0 2.0 0.6 FINAL oCrinne villasenor [facility] [place], [address] [place] [id number] 0 Phone: () - 07/15 CBC w/ auto diff LY # K/uL 0.4 3.6 1.3 FINAL Corinne villasenor [facility] [place], [address] [place] [id number] 0 Phone: () - 07/15 CBC w/ auto diff MO # K/uL 0.2 1.3 0.5 FINAL Corinne villasenor [facility] [place], [address] [place] [id number] 0 Phone: () - 07/15 CBC w/ auto diff EO # K/uL 0.0 0.6 0.1 FINAL Corinne villasenor [facility] [place] [facility], [address] [place] [id number] 0 Phone: () - 07/15 CBC w/ auto diff BA # K/uL 0.0 0.2 0.0 FINAL Corinne villasenor [facility] [place] [facility], [address] [place] [id number] 0 Phone: () - 07/15 CBC w/ auto diff NRBC % #/100W BC 0.0 0.2 0.0 FINAL Corinne villasenor [facility] [place] [facility], [address] [place] [id number] 0 Phone: () - 07/15 CBC w/ auto diff RBC M/uL 3.9 5.1 4.46 FINAL Corinne villasenor [facility] [place] [facility], [address] [place] [id number] 0 Phone: () - 07/15 CBC w/ auto diff HCT % 35.0 48.0 39.1 FINAL Corinne villasenor [facility] [place] [facility], [address] [place] [address] [address] [place] [id number] 0 Phone: () - 07/15 CBC w/ auto diff MCV fL 80.0 104.0 87.7 FINAL Corinne villasenor [facility] [place] [facility], [address] [place] [id number] 0 Phone: () - 07/15 CBC w/ auto diff MCH pg 26.0 35.0 28.7 FINAL Corinne villasenor [facility], [address] [place] [address] [address] [place] [id number] 0 Phone: () - 07/15 CBC w/ auto diff MCHC g/dL 30.0 35.0 32.7 FINAL Corinne vill[facility]or [facility], [address] [place] [address] [address] [place] [id number] 0 Phone: () - 07/15 CBC w/ auto diff MPV fL 9.5 13.4 8.9 Low FINAL Corinne villasenor [facility], [address] [place] [id number] 0 Phone: () - 07/15 CBC w/ auto diff RDW % 11.4 16.1 12.50 FINAL Corinne villasenor Oncology - [facility], [address] [place] [address] [address] [place] [id number] 0 Phone: () - 03/23 Vitam in B12 panel Vitam in B12 pg/mL 230.0 1050.[address] [facility]. [address] [facility] [address] [place] [address], [place] [address] FINAL [facility], [address] [facility] [address] [place] [phone] Phone: () - 10/30 [facility] other lab See adult secondary education instructor d 05/15 [facility] other lab See adult secondary education instructor d 05/15 [facility] other lab See adult secondary education instructor d 07/22 [facility] other lab See adult secondary education instructor d 07/23 [facility] other lab See adult secondary education instructor d 08/06 [facility] other lab See adult secondary education instructor d Medications Date Name Route Dose Frequency Instructions Start Date End Date Status Mebendazole Oral Chewable BID active Magnesium Oxide Oral prn active Ivermectin Oral QD active Miscellaneou s Drug BID lactoferin active Vit C,E-Zn-Coppe g-Iznmoa-Kep maria d Oral 250 mg-90 mg-40 mg-1 [...] sleep 2018 active 06/17 Azelastine-F luticasone Nasal [place] 137 mcg-50 mcg/spray 1.0 SPRAY(S) PRN 2018 [...] counseled Active Vital Signs Date Type Value 07/15/2020 BMI 24.64 07/15/2020 Height 66.50 07/15/2020 Weight 155.00 07/15/2020 Pain Scale 0.00 07/15/2020 BSA 1.80 07/15/2020 Oxygen Saturation 97.00 07/15/2020 Respiratory Rate 18.00 07/15/2020 Heart Beat 81.00 07/15/2020 Body Temperature 98.00 07/15/2020 Intravascular Systolic 110 07/15/2020 Intravascular Diastolic 64 10/30/2020 BMI 25.76 10/30/2020 Height 66.50 10/30/2020 Weight 162.00 10/30/2020 Pain Scale 0.00 10/30/2020 Intravascular Systolic 122 10/30/2020 Intravascular Diastolic 78 10/30/2020 Oxygen Saturation 98.00 10/30/2020 Respiratory Rate 18.00 10/30/2020 Heart Beat 66.00 10/30/2020 Body Temperature 98.00 10/30/2020 BSA 1.84 09/14/2021 Respiratory Rate 14.00 09/14/2021 Pain Scale 0.00 09/14/2021 Oxygen Saturation 96.00 09/14/2021 Heart Beat 90.00 09/14/2021 Intravascular Systolic 110 09/14/2021 Intravascular Diastolic 60 09/14/2021 Body Temperature 97.70 09/14/2021 BSA 1.83 09/14/2021 BMI 25.44 09/14/2021 Height 66.50 09/14/2021 Weight 160.00 03/23/2022 Body Temperature 98.10 03/23/2022 BMI 25.76 03/23/2022 Height 66.50 03/23/2022 Weight 162.00 03/23/2022 BSA 1.84 03/23/2022 Intravascular Systolic 126 03/23/2022 Intravascular Diastolic 70 03/23/2022 Oxygen Saturation 98.00 03/23/2022 Respiratory Rate 16.00 03/23/2022 Heart Beat 88.00 03/23/2022 Pain Scale 0.00 01/25/2023 Pain Scale 2.00 01/25/2023 Height 66.50 11/14/2023 Body Temperature 98.20 11/14/2023 Heart Beat 77.00 11/14/2023 Respiratory Rate 16.00 11/14/2023 Oxygen Saturation 98.00 11/14/2023 BSA 1.85 11/14/2023 Pain Scale 3.00 11/14/2023 Weight 165.00 11/14/2023 Height 66.50 11/14/2023 BMI 26.23 11/14/2023 Intravascular Systolic 132 11/14/2023 Intravascular Diastolic 86 12/01/2023 BSA 1.85 12/01/2023 Body Temperature 98.00 12/01/2023 Heart Beat 74.00 12/01/2023 Respiratory Rate 16.00 12/01/2023 Oxygen Saturation 99.00 12/01/2023 Intravascular Systolic 112 12/01/2023 Intravascular Diastolic 70 12/01/2023 Pain Scale 5.00 12/01/2023 Weight 165.00 12/01/2023 BMI 26.23 12/01/2023 Height 66.50 12/15/2023 BMI 26.07 12/15/2023 Height 66.50 12/15/2023 Weight 164.00 12/15/2023 Pain Scale 0.00 12/15/2023 Intravascular Systolic 134 12/15/2023 Intravascular Diastolic 86 12/15/2023 Oxygen Saturation 98.00 12/15/2023 Respiratory Rate 18.00 12/15/2023 Heart Beat 74.00 12/15/2023 Body Temperature 97.80 12/15/2023 BSA 1.85 12/19/2023 BMI 26.26 12/19/2023 Height 66.50 12/19/2023 Weight 165.20 12/19/2023 Pain Scale 4.00 12/19/2023 BSA 1.85 12/19/2023 Oxygen Saturation 98.00 12/19/2023 Respiratory Rate 16.00 12/19/2023 Heart Beat 87.00 12/19/2023 Body Temperature 97.10 12/19/2023 Intravascular Systolic 124 12/19/2023 Intravascular Diastolic 76 01/01/2024 Oxygen Saturation 96.00 01/01/2024 Pain Scale 0.00 01/01/2024 Weight 163.80 01/01/2024 Height 66.50 01/01/2024 BMI 26.04 01/01/2024 BSA 1.85 01/01/2024 Intravascular Systolic 126 01/01/2024 Intravascular Diastolic 78 01/01/2024 Body Temperature 97.30 01/01/2024 Heart Beat 78.00 01/01/2024 Respiratory Rate 16.00 01/30/2024 BMI 25.09 01/30/2024 Height 66.50 01/30/2024 Weight 157.80 01/30/2024 BSA 1.82 01/30/2024 Oxygen Saturation 96.00 01/30/2024 Respiratory Rate 16.00 01/30/2024 Heart Beat 71.00 01/30/2024 Body Temperature 97.50 01/30/2024 Intravascular Systolic 124 01/30/2024 Intravascular Diastolic 78 07/10/2024 BSA 1.79 07/10/2024 BMI 24.10 07/10/2024 Height 66.50 07/10/2024 Weight 151.60 07/10/2024 Pain Scale 0.00 07/10/2024 Intravascular Systolic 126 07/10/2024 Intravascular Diastolic 88 07/10/2024 Oxygen Saturation 99.00 07/10/2024 Respiratory Rate 16.00 07/10/2024 Body Temperature 97.60 07/10/2024 Heart Beat 93.00 11/29/2024 Heart Beat 74.00 11/29/2024 BMI 23.15 11/29/2024 Height 66.50 11/29/2024 Weight 145.60 11/29/2024 Pain Scale 0.00 11/29/2024 Intravascular Systolic 122 11/29/2024 Intravascular Diastolic 72 11/29/2024 Body Temperature 98.00 11/29/2024 BSA 1.76 11/29/2024 Respiratory Rate 16.00 11/29/2024 Oxygen Saturation 100.00 01/17/2025 Height 66.50 01/17/2025 Intravascular Systolic 120 01/17/2025 Intravascular Diastolic 82 01/17/2025 Oxygen Saturation 99.00 01/17/2025 Respiratory Rate 16.00 01/17/2025 Heart Beat 74.00 01/17/2025 Body Temperature 97.80
--- OUTSIDE RECORDS SUMMARY | 2025-04-24 19:52 | XMS_ITS ---
Author Name Interface, [id number] lity Address [address] [place] [address] [address] [place] [address] [facility] Address [address] [facility] [address] [place] [address] Allergies and Adverse Reactions Plan Reason for Visit Encounters Immunizations Diagnostic Results Medications Problems Vital Signs
--- OUTSIDE RECORDS SUMMARY | 2025-04-24 19:52 | XMS_ITS ---
Author Name Interface, [id number] lity Address [address] [place] [address] [address] [place] [address] [facility] Address [address] [facility] [address] [place] [address] Allergies and Adverse Reactions Plan Reason for Visit Encounters Immunizations Diagnostic Results Medications Problems Vital Signs
--- OUTSIDE RECORDS SUMMARY | 2025-04-24 19:52 | XMS_ITS ---
Author Name Interface, [id number] lity Address [address] [facility] [address] [address] [facility] Address [address] [facility] [address] [address] Allergies and Adverse Reactions Medication/Group Name Reaction [...] 01/01/2024 APPOINTMENT INTERNAL REFERRA L 30 MIN 01/10/2024 LABORDER U/S breast, left 06/14/2024 LABORDER PET/CT scan, sku ll base/mid thigh 01/13/2025 LABORDER PET/CT scan, sku ll base/mid thigh Reason for Visit OV 20 MIN Encounters Date Name 01/01/2024 Dry mouth 01/01/2024 Primary malignant ne oplasm of female breast (disorder) 01/01/2024 Secondary malignancy of lymph nodes Immunizations Date Name Route Dose Instructions Refusal Reason Stat us Flu vaccine - Adult Patient declined/rejected Not Administered Flu vaccine - Adult Patient declined/rejected Not Administered Diagnostic Results Date Type Test Units Lower Limit Upper Limit Result Flag Comments Status Ordered By Specimen Source Lab Address 05/15 [facility] other lab See public relations analyst d 05/15 [facility] other lab See public relations analyst d 07/22 [facility] other lab See public relations analyst d 07/23 [facility] other lab See public relations analyst d 08/06 [facility] other lab See public relations analyst d Medications Date Name Route Dose Frequency Instructions Start Date End Date Status Mebendazole Oral Chewable BID active Magnesium Oxide Oral prn active Ivermectin Oral QD active Miscellaneou s Drug BID lactoferin active Vit C,E-Zn-Coppe b-Dqifgk-Cgf maria d Oral 250 mg-90 mg-40 mg-1 [...] sleep 2018 active 06/17 Azelastine-F luticasone Nasal [place] 137 mcg-50 mcg/spray 1.0 SPRAY(S) PRN 2018 [...] counseled Active Vital Signs Date Type Value 01/01/2024 BSA 1.85 01/01/2024 Intravascular Systolic 126 01/01/2024 Intravascular Diastolic 78 01/01/2024 Body Temperature 97.30 01/01/2024 Heart Beat 78.00 01/01/2024 Respiratory Rate 16.00 01/01/2024 Oxygen Saturation 96.00 01/01/2024 Pain Scale 0.00 01/01/2024 Weight 163.80 01/01/2024 Height 66.50 01/01/2024 BMI 26.04 01/30/2024 BSA 1.82 01/30/2024 BMI 25.09 01/30/2024 Height 66.50 01/30/2024 Weight 157.80 01/30/2024 Respiratory Rate 16.00 01/30/2024 Intravascular Systolic 124 01/30/2024 Intravascular Diastolic 78 01/30/2024 Oxygen Saturation 96.00 01/30/2024 Body Temperature 97.50 01/30/2024 Heart Beat 71.00 07/10/2024 BSA 1.79 07/10/2024 BMI 24.10 07/10/2024 Height 66.50 07/10/2024 Weight 151.60 07/10/2024 Pain Scale 0.00 07/10/2024 Intravascular Systolic 126 07/10/2024 Intravascular Diastolic 88 07/10/2024 Oxygen Saturation 99.00 07/10/2024 Respiratory Rate 16.00 07/10/2024 Body Temperature 97.60 07/10/2024 Heart Beat 93.00 11/29/2024 BMI 23.15 11/29/2024 BSA 1.76 11/29/2024 Weight 145.60 11/29/2024 Pain Scale 0.00 11/29/2024 Intravascular Systolic 122 11/29/2024 Intravascular Diastolic 72 11/29/2024 Oxygen Saturation 100.00 11/29/2024 Respiratory Rate 16.00 11/29/2024 Heart Beat 74.00 11/29/2024 Body Temperature 98.00 11/29/2024 Height 66.50 01/17/2025 Intravascular Systolic 120 01/17/2025 Intravascular Diastolic 82 01/17/2025 Oxygen Saturation 99.00 01/17/2025 Respiratory Rate 16.00 01/17/2025 Heart Beat 74.00 01/17/2025 Body Temperature 97.80 01/17/2025 Height 66.50 Notes Section * Thoracic Visit Note Patient Name: KIMBERLY ZHU Date of :??1955 Date:??01/01/2024 THORACIC VISIT NOTE Mrs. Leblanc??Disha??is seen as a new patient??on 01/01/2024??regarding??a??metastatic??left supraclavicular lymph node??biopsy proven triple negative breast cancer recurrence. She is a 68-year-old woman with no history of smoking.?? She was diagnosed in January 2019 with a??T2 a N0 M0??triple negative breast cancer??which was treated with neoadjuvant chemotherapy surgery and radiation therapy.?? She was found to have a??left supracondylar lymphadenopathy??on a??physical exam.?? PET CT scan dated the??11/23/2023 was reviewed.?? There is a 1.8 x 1.1 cm??markedly FDG avid left supraclavicular lymph node. ??There is an additional??subcentimeter left Node??in the??same area suspicious for??additional carmelo metastasis.?? PET scan is otherwise??negative.?? Biopsy of the supraclavicular node was done and shows??metastatic breast cancer. Options of treatment were discussed.?? Because of her neuropathy, she is reluctant to have more??chemotherapy.?? I do not recommend surgical resection??since??I do not think this can be completely resected??cleanly.?? My recommendation is for her to??follow-up with Dr. Bashir and considered??treatmen t. ??I would be happy to reconsider??surgical resection??based on further imaging and clinical exam. I am happy to see her as needed.. Gus Hendrickson MD [facility] Gus Hendrickson MD Copy to: Sheila Fowler MD (Referring) Dedra Timmons MD FAX (Referring) Benny Villegas MD Electronically signed by Gus Hendrickson MD 01/06/2024 13:04 CDT
[2025-04-24 20:40] LABS: Albumin* 4.0 g/dL (3.3-5.0)
[2025-04-24 20:43] LABS: Alanine Aminotransferase* 51 U/L (4-35); Alkaline Phosphatase* 100 U/L (40-150); Aspartate Amino Transferase* 46 U/L (12-35); Total Protein* 6.8 g/dL (6.0-8.3)
[2025-04-24 20:44] LABS: Bilirubin Total* < 0.1 mg/dL (0.1-1.5)
[2025-04-24 20:45] LABS: Bilirubin Direct* 0.0 mg/dL (0.0-0.5)
== END 2025-04-24 21:05 | disposition home or self-care (01) ==
PROVIDERS: Emergency Provider Student in an Organized Health Care Education/Training Program; PCP Family Medicine
DX: M62.512 Muscle wasting and atrophy, not elsewhere classified, left shoulder (principal)
CPT/HCPCS: 36415; 73030; 80076; 99283; 99284